=== PATIENT | female | born 1940 | race Caucasian/White ===

== ENCOUNTER 2018-10-04 17:17 | Inpatient (IN) ==
[2018-10-04] MEDS ORDERED: ONDANSETRON INJ 2 MG/ML 2 ML VIAL IV STA (17:26)
[2018-10-04] MEDS ORDERED: SODIUM CHLORIDE 0.9% 1000ML 1,000 ML IV SCH (17:30)
--- NOTE | 2018-10-04 17:35 | Emergency Department Note ---
Entered by Ivelisse Rider acting as a scribe for History of Present Illness General Chief complaint: Illness Time Seen by Provider: 10/04/18 17:18 Source: patient and EMS Mode of arrival: EMS Limitations: no limitations History of Present Illness Provider complaint: nausea, vomiting and diarrhea Onset (ago): hour(s) (this morning) Location: abdomen Pain Consistency: + other (persistent ) Quality: + other (NVD) Associated symptoms: + denies other symptoms (dysuria, abdominal pain, sore throat) and + fever/chills (chills, no fever); no cough Treatments prior to arrival: other (Zofran, Saline) The patient is a 77 year old female who presents to the Emergency Room with complaints of persistent nausea, vomiting and diarrhea that began this morning. The patient notes that she began to feel nauseous this morning and later in the afternoon had several episodes of vomiting as well as diarrhea. She denies any fevers but notes she has had chills. The patient reports that her has been experiencing similar symptoms but did not have to present to the ER. She denies any dysuria, sore throat, abdominal pain. She has had a dry cough. She states that she has a history of hypertension and osteoporosis. Per EMS, the patient was given 4 mg of Zofran en route as well as 500 cc of saline. Home Medications Home Medications Medication Instructions Recorded Confirmed Type alendronate 70 mg PO WK 10/04/18 10/04/18 History atorvastatin 20 mg PO DAILY 10/04/18 10/04/18 History calcium carbonate [Tums] 200 mg PO DIRECTED PRN 10/04/18 10/04/18 History calcium carbonate-vitamin D3 1 tab PO DAILY 10/04/18 10/04/18 History [Caltrate 600 + D] hydrochlorothiazide 25 mg PO DAILY 10/04/18 10/04/18 History lisinopril 5 mg PO DAILY 10/04/18 10/04/18 History Allergies Allergy/AdvReac Type Severity Reaction Status Date / Time Penicillins Allergy Mild Unknown Verified 10/04/18 17:39 codeine AdvReac Mild NAUSEA Verified 10/04/18 17:39 meperidine AdvReac Mild NAUSEA Verified 10/04/18 17:39 Past Med/Surg History Medical History Osteoporosis (Chronic) Hypertension (Chronic) Breast cancer CKD (chronic kidney disease) stage 3, GFR 30-59 ml/min IBS (irritable bowel syndrome) Osteoarthritis Raynauds disease UTI (urinary tract infection) Surgical History H/O partial mastectomy left Hx of cholecystectomy Social History Preferred Language: Cuban Communication Ability: Effective Vocational Evaluator Required: No Beliefs That Will Affect Care: None marital status: Current Living Situation: Spouse Other Information That Helps Us Care for You: No Feels Safe at Home: Yes Safety Concerns: Feels Safe At This Time Smoking Status: Former smoker Hx Alcohol Use: No Hx Substance Use: No Review of Systems See HPI for pertinent positives & negatives. and A total of 10 systems reviewed and were otherwise negative Physical Exam Vital Signs Vital Signs - 24 hr 10/04/18 17:23 10/04/18 17:40 10/04/18 20:00 Temperature 36.4 C L Temperature Source Oral Sepsis Recent Fever Within 48 Hours No Sepsis New/Unexplained Change in Mental Status No Sepsis Action Taken by Nursing No Action Required Pulse Rate 72 Pulse Rate [Left Radial] 108 H Pulse Rhythm Regular Pulse Strength Normal Respiratory Rate 20 18 Respiratory Effort / Characteristics Non-Labored Spontaneous Respiratory Depth Normal Respiratory Pattern Regular Blood Pressure 169/84 H Blood Pressure [Left Arm] 181/87 H Blood Pressure [Right Arm] Blood Pressure Mean 112 Blood Pressure Mean [Left Arm] 118 Blood Pressure Mean [Right Arm] Blood Pressure Position Sitting Pulse Oximetry 99 96 91 Oxygen Delivery Method Room Air Room Air 10/04/18 21:10 10/04/18 21:33 Temperature 36.7 C Temperature Source Oral Sepsis Recent Fever Within 48 Hours Sepsis New/Unexplained Change in Mental Status Sepsis Action Taken by Nursing Pulse Rate 115 H Pulse Rate [Left Radial] 78 Pulse Rhythm Pulse Strength Respiratory Rate 16 20 Respiratory Effort / Characteristics Respiratory Depth Respiratory Pattern Blood Pressure 165/93 H Blood Pressure [Left Arm] 166/87 H Blood Pressure [Right Arm] 157/100 H Blood Pressure Mean Blood Pressure Mean [Left Arm] 113 Blood Pressure Mean [Right Arm] 119 Blood Pressure Position Pulse Oximetry 92 98 Oxygen Delivery Method Room Air Room Air GENERAL: Patient is in no acute distress. HEENT: No acute trauma, normocephalic atraumatic, mucous membranes dry, no nasal congestion, no scleral icterus. NECK: No stridor, no adenopathy, no meningismus, trachea is midline. LUNGS: Clear to auscultation bilaterally, no wheeze, no rhonchi, breath sounds equal. HEART: Without murmurs gallops or rubs, regular rate and rhythm. ABDOMEN: Soft, nontender, bowel sounds positive, no hernias, no peritonitis. EXTREMITIES: No cyanosis or edema, full range of motion of all the joints without pain or difficulty, no signs for acute trauma. NEUROLOGIC: Oriented x 3, no acute motor or sensory deficits, no focal weakness. SKIN: No rash, no jaundice, no diaphoresis. Course 172: Past medical records reviewed. The patient was evaluated in room C10, and a complete history and physical examination were performed. 1900: The patient is requesting more nausea medication. 1916: Upon reevaluation, the patient is still feeling poorly. She now reports that she has had a dry cough. 1922: I reviewed the patient's case with Dr. Nikole Zhu. He will evaluate the patient for further management. Administered Medications Azithromycin 500 mg/ Dextrose 255 mls @ 125 mls/hr IV DAILY@2200 [facility] Stop: 10/11/18 21:59 Last Admin: 10/04/18 22:07 Dose: 125 mls/hr Documented by: [id number] Cefepime HCl 2,000 mg/ Syringe 20 mls @ 5.5 mls/min IV Q24H [facility]; Protocol Stop: 10/11/18 21:59 Last Admin: 10/04/18 21:57 Dose: 5.5 mls/min Documented by: [id number] Dextrose/Sodium Chloride (D5w And Nss) 1,000 mls @ 125 mls/hr IV .Q8H [facility] Stop: 11/03/18 21:09 Last Admin: 10/04/18 21:57 Dose: 125 mls/hr Documented by: [id number] Discontinued Medications Sodium Chloride (Nss 1000ml) 1,000 mls @ 999 mls/hr IV .Q1H1M [facility] Stop: 10/04/18 18:30 Last Infusion: 10/04/18 18:34 Dose: 0 mls/hr Documented by: [id number] Admin: 10/04/18 17:33 Dose: 999 mls/hr Documented by: [id number] Magnesium Sulfate/Dextrose (Magnesium Sulfate / D5w) 1 gm in 100 mls @ 100 mls/hr IV ONE ONE Stop: 10/04/18 19:25 Last Infusion: 10/04/18 20:10 Dose: 0 mls/hr Documented by: [id number] Admin: 10/04/18 19:00 Dose: 100 mls/hr Documented by: [id number] Promethazine HCl 6.25 mg/ (Sodium Chloride) 50.25 mls @ 201 mls/hr IV NOW STA Stop: 10/04/18 19:14 Last Admin: 10/04/18 19:20 Dose: Not Given Documented by: [id number] Cefepime HCl 2,000 mg/ Syringe 20 mls @ 5.5 mls/min IV NOW STA Stop: 10/04/18 19:20 Last Admin: 10/04/18 21:55 Dose: Not Given Documented by: [id number] Sodium Chloride (Nss 1000ml) 500 mls @ 999 mls/hr IV .Q31M ONE Stop: 10/04/18 19:47 Last Infusion: 10/04/18 20:11 Dose: 0 mls/hr Documented by: [id number] Admin: 10/04/18 19:20 Dose: 999 mls/hr Documented by: [id number] Magnesium Oxide (Mag-Ox) 400 mg PO NOW STA Stop: 10/04/18 18:27 Last Admin: 10/04/18 19:19 Dose: 400 mg Documented by: [id number] Ondansetron HCl (Zofran) 2 mg IV NOW STA Stop: 10/04/18 17:27 Last Admin: 10/04/18 17:38 Dose: 2 mg Documented by: [id number] Promethazine HCl (Phenergan) Confirm Administered Dose 6.25 mg IV .STK-MED ONE Stop: 10/04/18 19:18 Last Admin: 10/04/18 19:19 Dose: 6.25 mg Documented by: [id number] Medical Decision Making Differential Diagnosis Differential Diagnosis includes: viral illness, foodborne illness, dehydration, renal injury, UTI, influenza, bowel obstruction, and liver failure. Medical Records Attestation: I reviewed the patient's medical records. Home Medications Current Medication List: was personally reviewed by me Laboratory Data Attestation: I reviewed the patient's lab results. Result diagrams: 10/04/18 17:49 10/04/18 17:49 Lab Results 10/04/18 10/04/18 10/04/18 Range/Units 17:42 17:49 17:49 WBC 9.38 (4.8-10.8) K/uL RBC 4.78 (4.2-5.4) M/uL Hgb 14.9 (12.0-16.0) g/dL Hct 44.3 (37-47) % MCV 92.7 (80-100) fL MCH 31.2 (25-34) pg MCHC 33.6 (32-36) g/dL RDW Std Deviation 47.1 H (36.4-46.3) fL RDW Coeff of Dana 13.8 (11.5-14.5) % Plt Count 211 (130-400) K/uL MPV 10.2 (7.4-10.4) fL Immature Gran % (Auto) 0.2 % Neut % (Auto) 88.1 % Lymph % (Auto) 6.5 % Wheeler % (Auto) 5.0 % Eos % (Auto) 0.2 % Baso % (Auto) 0.0 % Immature Gran # (Auto) 0.02 (0.00-0.02) K/uL Neut # (Auto) 8.26 H (1.4-6.5) K/uL Lymph # (Auto) 0.61 L (1.2-3.4) K/uL Wheeler # (Auto) 0.47 (0.11-0.59) K/uL Eos # (Auto) 0.02 (0-0.5) K/uL Baso # (Auto) 0.00 (0-0.2) K/uL PT (9.0-12.0) Seconds INR (0.9-1.1) APTT (21.0-31.0) Seconds PTT Ratio Sodium 140 (136-145) mmol/L Potassium 4.1 (3.5-5.1) mmol/L Chloride 105 (98-107) mmol/L Carbon Dioxide 27 (21-32) mmol/L Anion Gap 8.0 (3-11) BUN 18 (7-18) mg/dl Creatinine 0.98 (0.6-1.2) mg/dl Est Cr Clr Drug Dosing 41.5 ml/min Est GFR ( Amer) 63.6 Est GFR (Non-Af Amer) 54.9 BUN/Creatinine Ratio 18.6 (10-20) Glucose 139 H (70-99) mg/dl Calcium 8.9 (8.5-10.1) mg/dl Magnesium 1.6 L (1.8-2.4) mg/dl Total Bilirubin 0.7 (0.2-1) mg/dl AST 30 (15-37) U/L ALT 29 (12-78) U/L Alkaline Phosphatase 69 (45-117) U/L Troponin I < 0.015 (0-0.045) ng/ml Total Protein 7.1 (6.4-8.2) gm/dl Albumin 3.3 L (3.4-5.0) gm/dl Globulin 3.8 (2.5-4.0) gm/dl Albumin/Globulin Ratio 0.9 (0.9-2) TSH 2.050 (0.300-4.500) uIu/ml Influenza Type A Ag Neg for Influ A (Neg) Influenza Type B Ag Neg for Influ B (Neg) 10/04/18 Range/Units 17:49 WBC (4.8-10.8) K/uL RBC (4.2-5.4) M/uL Hgb (12.0-16.0) g/dL Hct (37-47) % MCV (80-100) fL MCH (25-34) pg MCHC (32-36) g/dL RDW Std Deviation (36.4-46.3) fL RDW Coeff of Dana (11.5-14.5) % Plt Count (130-400) K/uL MPV (7.4-10.4) fL Immature Gran % (Auto) % Neut % (Auto) % Lymph % (Auto) % Wheeler % (Auto) % Eos % (Auto) % Baso % (Auto) % Immature Gran # (Auto) (0.00-0.02) K/uL Neut # (Auto) (1.4-6.5) K/uL Lymph # (Auto) (1.2-3.4) K/uL Wheeler # (Auto) (0.11-0.59) K/uL Eos # (Auto) (0-0.5) K/uL Baso # (Auto) (0-0.2) K/uL PT 10.7 (9.0-12.0) Seconds INR 1.0 (0.9-1.1) APTT 20.6 L (21.0-31.0) Seconds PTT Ratio 0.8 Sodium (136-145) mmol/L Potassium (3.5-5.1) mmol/L Chloride (98-107) mmol/L Carbon Dioxide (21-32) mmol/L Anion Gap (3-11) BUN (7-18) mg/dl Creatinine (0.6-1.2) mg/dl Est Cr Clr Drug Dosing ml/min Est GFR ( Amer) Est GFR (Non-Af Amer) BUN/Creatinine Ratio (10-20) Glucose (70-99) mg/dl Calcium (8.5-10.1) mg/dl Magnesium (1.8-2.4) mg/dl Total Bilirubin (0.2-1) mg/dl AST (15-37) U/L ALT (12-78) U/L Alkaline Phosphatase (45-117) U/L Troponin I (0-0.045) ng/ml Total Protein (6.4-8.2) gm/dl Albumin (3.4-5.0) gm/dl Globulin (2.5-4.0) gm/dl Albumin/Globulin Ratio (0.9-2) TSH (0.300-4.500) uIu/ml Influenza Type A Ag (Neg) Influenza Type B Ag (Neg) Imaging Data Radiologist's Impression: Radiology results as stated below per my review and the radiologist's interpretation: CHEST AND ABDOMEN 2 VIEWS HISTORY: Nausea. Vomiting. Diarrhea. COMPARISON: None. FINDINGS: The bowel gas pattern is unremarkable. No evidence for bowel obstruction. No renal or ureteral calculi. No pneumoperitoneum. No pneumatosis. No pneumothorax. No significant pleural effusions. The heart is mildly enlarged. Diffuse interstitial thickening throughout the lungs. Some of this has a reticular nodular appearance. Right medial lung base hazy airspace opacity. Linear density within the left midlung zone suggestive of scarring or atelectasis. IMPRESSION: 1. No evidence for bowel obstruction. 2. Cardiomegaly with reticulonodular interstitial thickening. This could be chronic. An atypical pneumonitis could also have a similar appearance. 3. Hazy appearance to the right medial lung base may be due to atelectasis or pneumonia. Electronically signed by: Kristian Hughes M.D. 10/04/2018 6:54 PM ECG Data Attestation: I personally reviewed and interpreted this ECG as follows: Indication: weakness Rate (beats per minute): 75 Rhythm: normal sinus Findings: + other (LVH) and + RBBB; no PVC and no ST elevation Comparison ECG Date: no prior available Blood Pressure Blood Pressure Findings: Elevated blood pressure Blood Pressure Disposition: further management by hospitalist SORAYA Narrative There is no leukocytosis or concerning anemia. No kidney failure. Magnesium is low at 1.6. No hepatitis. The patient appears to be in a euthyroid state. EKG shows a sinus rhythm, no acute ischemia. Cardiac enzyme testing x1 is not con sistent with acute cardiac injury. Influenza testing was negative. Abdominal series does not show any bowel obstruction or free air. A potential pneumonia was seen in the right lower lung. Blood cultures are pending. The patient had received Zofran and saline in route. She required additional IV Zofran, she was given additional IV saline. She required IV Phenergan for continued nausea. She was given IV cefepime as antibiotic coverage. She received IV magnesium and oral magnesium. The patient presents with vomiting, she is dehydrated. She has been coughing with chills. She appears to have pneumonia. She is not responding to antinausea meds, she still feels quite sick in her stomach despite what she has already received. I do not think she is any condition to be discharged home. I spoke to the patient and correctional casework specialist. The on-call hospitalist was consulted. Impression & Plan Vomiting, Dehydration, Pneumonia, Weakness, Hypomagnesemia Discharge Plan Visit Data *Final* Discharge Date/Time: 10/04/18 21:10 Chief Complaint: Illness ED Provider: Naveen Ramos Discharge Problem: Vomiting, Dehydration, Pneumonia, Weakness, Hypomagnesemia Patient Disposition: Admitted As Inpatient Discharge Instructions Interventions: ED Discharge Assessment Last Done: 10/04/18 21:10 Discharge Problem: Vomiting Qualifiers: Vomiting type: unspecified Vomiting Intractability: intractable Nausea presence: with nausea Qualified Code(s): R11.2 - Nausea with vomiting, un specified Pneumonia Qualifiers: Pneumonia type: due to unspecified organism Laterality: right Lung location: lower lobe of lung Qualified Code(s): J18.1 - Lobar pneumonia, unspecified organism The scribe's documentation has been prepared under my direction and personally reviewed by me in its entirety. I confirm that the note above accurately refle cts all work, treatment, procedures, and medical decision making performed by me.
[2018-10-04 18:03] LABS: Eosinophils # (auto) 0.02 K/uL (0-0.5); Eosinophils % (auto) 0.2 %; Hematocrit (blood only) 44.3 % (37-47); Hemoglobin 14.9 g/dL (12.0-16.0); Immature Granulocytes # (auto) 0.02 K/uL (0.00-0.02); Immature Granulocytes % (auto) 0.2 %; Lymphocytes # (auto) 0.61 K/uL (1.2-3.4); Lymphocytes % (auto) 6.5 %; Mean Corpuscular Hgb Conc 33.6 g/dL (32-36); Mean Corpuscular Volume 92.7 fL (80-100); Mean Platelet Volume 10.2 fL (7.4-10.4); Monocytes # (auto) 0.47 K/uL (0.11-0.59); Neutrophils # (auto) 8.26 K/uL (1.4-6.5); Neutrophils % (auto) 88.1 %; Platelet Count 211 K/uL (130-400); RDW Coefficient of Variation 13.8 % (11.5-14.5); RDW Standard Deviation 47.1 fL (36.4-46.3); Red Blood Count 4.78 M/uL (4.2-5.4); White Blood Count 9.38 K/uL (4.8-10.8)
[2018-10-04 18:20] LABS: Alanine Aminotransferase 29 U/L (12-78); Albumin Level 3.3 gm/dl (3.4-5.0); Aspartate Aminotransferase 30 U/L (15-37); BUN Creatinine Ratio 18.6 (10-20); Blood Urea Nitrogen 18 mg/dl (7-18); Calcium 8.9 mg/dl (8.5-10.1); Carbon Dioxide 27 mmol/L (21-32); Chloride 105 mmol/L (98-107); Creatinine Clr Calc Pharmacy 41.5 ml/min; Est GFR (African American) 63.6; Est GFR (Non-African American) 54.9; Glucose 139 mg/dl (70-99); Magnesium 1.6 mg/dl (1.8-2.4); Potassium 4.1 mmol/L (3.5-5.1); Sodium 140 mmol/L (136-145)
[2018-10-04] MEDS ORDERED: MAGNESIUM SULFATE / D5W 1 GM/100 ML BAG IV ONE (18:26)
[2018-10-04] MEDS ORDERED: MAGNESIUM OXIDE 400 MG TAB PO STA (18:26)
[2018-10-04 18:31] LABS: Albumin Globulin Ratio 0.9 (0.9-2); Alkaline Phosphatase 69 U/L (45-117); Bilirubin,Total 0.7 mg/dl (0.2-1); Globulin 3.8 gm/dl (2.5-4.0); Total Protein 7.1 gm/dl (6.4-8.2); Troponin I < 0.015 ng/ml (0-0.045)
--- NOTE | 2018-10-04 18:56 | XRay Report ---
CHEST AND ABDOMEN 2 VIEWS HISTORY: Nausea. Vomiting. Diarrhea. COMPARISON: None. FINDINGS: The bowel gas pattern is unremarkable. No evidence for bowel obstruction. No renal or urete ral calculi. No pneumoperitoneum. No pneumatosis. No pneumothorax. No significant pleural effusions. The heart is mildly enlarged. Diffuse interstitial thickening throughout the lungs. Some of this has a reticular nodular appearance. Right medial lung base hazy airspace opacity. Linear density within t he left midlung zone suggestive of scarring or atelectasis. IMPRESSION: 1. No evidence for bowel obstruction. 2. Cardiomegaly with reticulonodular interstitial thickening. This could be chronic. An atypical pneu monitis could also have a similar appearance. 3. Hazy appearance to the right medial lung base may be due to atelectasis or pneumonia. Electronically signed by: Kristian Hughes M.D. 10/04/2018 6:54 PM
[2018-10-04] MEDS ORDERED: PROMETHAZINE HCL 6.25 MG in SODIUM CHLORIDE 0.9% 50 ML IV STA (19:00)
[2018-10-04] MEDS ORDERED: PROMETHAZINE 6.25 MG/50.25 ML NSS IV ONE (19:17)
[2018-10-04] MEDS ORDERED: CEFEPIME 2,000 MG in SYRINGE 7.5 ML IV STA (19:17)
[2018-10-04] MEDS ORDERED: SODIUM CHLORIDE 0.9% 1000ML 500 ML IV ONE (19:17)
[2018-10-04] MEDS ORDERED: NITROGLYCERIN SL 0.4 MG/TAB TAB SL PRN (21:10)
[2018-10-04] MEDS ORDERED: ONDANSETRON INJ 2 MG/ML 2 ML VIAL IV PRN (21:10)
[2018-10-04] MEDS ORDERED: CALCIUM CARBONATE 500 MG CHEWABLE TAB PO PRN ×2 (21:10→21:45)
[2018-10-04] MEDS ORDERED: ACETAMINOPHEN 325 MG TAB PO PRN (21:10)
[2018-10-04] MEDS ORDERED: CEFEPIME CONSULT ACTIVE PRN (21:22)
[2018-10-04 21:45] LABS: Partial Thromboplastin Ratio 0.8; Partial Thromboplastin Time 20.6 Seconds (21.0-31.0); Prothrombin Time 10.7 Seconds (9.0-12.0)
--- NOTE | 2018-10-04 21:47 | History and Physical Report ---
DATE OF ADMISSION: 10/04/2018 CHIEF COMPLAINT: Nausea, vomiting, diarrhea, not feeling well. HISTORY OF PRESENT ILLNESS: This is a 77-year-old female with past medical history significant for hyperlipidemia, Raynaud's syndrome, hypertension, irritable bowel syndrome, chronic kidney stage III, generalized arthrosis and osteoporosis, history of malignant neoplasm of breast presents with nausea, vomiting and diarrhea. The patient says since today afternoon she developed nausea and vomited 3-4 times, vomited just watery stuff and also had 3-4 episodes of diarrhea. There was no blood in the stools.She was not feeling well, so she came to the ER. She also has a history of irritable bowel syndrome. Her also has similar symptoms since last 1 week, but not severe as hers. She received a couple of doses of antiemetics in the ER and still not feeling well, feeling weak and tired, so we were called for admission. Her nausea is better now, but she is still somewhat feeling weak. Has some headaches,. Has some issues with vision and is supposed to see eye doctor. No earache. Has some runny nose. No sore throat. Today, she also has some dry cough. No difficulty swallowing. Appetite is not great today. No chest pain, no shortness of breath. Denies any fever, but feeling very chilly requiring several blankets in the ER. No abdominal pain. She has normal bladder movements. No burning micturition. No swelling in the legs. No rash. Hemodynamics are stable. ALLERGIES: PENICILLINS, CODEINE, MEPERIDINE. PAST MEDICAL HISTORY: As mentioned above. PAST SURGICAL HISTORY: Cervical lesion, cervical polyp removal, colonoscopy with removal of hyperplastic polyps, left breast partial mastectomy, appendectomy, cataract surgery, cholecystectomy. MEDICATIONS: Patient is on atorvastatin 20 mg p.o. daily, alendronate 70 mg p.o. once a week, hydrochlorothiazide 25 mg p.o. daily, lisinopril 5 mg p.o. daily, multivitamins 1 tablet daily, calcium citrate plus vitamin D 1 tablet b.i.d. FAMILY HISTORY: Significant for grandmother with asthma and diabetes. Sister has rheumatoid arthritis. Father has asthma. SOCIAL HISTORY: Lives with her . Former smoker, smoked half pack a day for 30 years, quit in 1992. Alcohol, 1 glass of wine per week. No drug use. REVIEW OF SYSTEMS: As per HPI. Rest of review of symptoms negative. PHYSICAL EXAMINATION: GENERAL: The patient is of moderate build, not in acute distress. VITAL SIGNS: Temperature 36.4, pulse 72, respiratory rate 20, blood pressure 169/84, oxygen 96% room air. HEENT: No pallor, no icterus. Pupils equal, round, and reactive to light. NECK: No JVD, no neck masses, no carotid bruits. CARDIOVASCULAR: S1, S2 heard, regular rate and rhythm, no murmur, no gallop. RESPIRATORY SYSTEM: Normal AP diameter. No accessory muscle use. Mild bibasilar crackles. No wheezing. ABDOMEN: Soft, bowel sounds present. Nontender. No distention. CENTRAL NERVOUS SYSTEM: Cranial nerves II through XII grossly intact, nonfocal. EXTREMITIES: No edema, no erythema. LABORATORY DATA: WBC 9.3, hemoglobin 14.9, hematocrit 44.3, platelets 211. Sodium 140, potassium 4.1, chloride 105, bicarbonate 27, BUN 18, creatinine 0.9, serum glucose 139, calcium 8.9, magnesium 1.6, total bilirubin 0.7, AST 30, ALT 29, alkaline phosphatase 69. Troponin I less than 0.015. TSH 2.05. Influenza A and B antigen negative. IMAGING DATA: Chest and abdominal x-ray, no evidence for bowel obstruction, cardiomegaly with reticulonodular interstitial thickening and atypical pneumonitis could also have a similar appearance. Hazy appearance of the right medial lung base may be due to her atelectasis or pneumonia. EKG: Normal sinus rhythm with rate of 75, right bundle branch block, left ventricle hypertrophy, left anterior fascicular block. ASSESSMENT AND PLAN: This is a 77-year-old female who presents with nausea, vomiting and diarrhea. 1. Nausea, vomiting, diarrhea, not feeling well, possibly gastroenteritis, could be viral. We will check the stool sample. We will also follow urinalysis, urine culture, and blood culture. Possibly symptoms could be from pneumonia. Will place on liquid diet, antiemetics p.r.n., and IV fluids and monitor . 2. Pneumonia on the x-ray. Received cefepime in Er.Continue on cefepime and azithromycin. Follow the cultures. Follow the response. 3. Hyperlipidemia. Continue statin. 4. Hypertension. Will hold the hydrochlorothiazide, continue lisinopril. Monitor the blood pressure while off of hydrochlorothiazide. 5. Irritable bowel syndrome with diarrhea. Currently exacerbated from the gastroenteritis or pneumonia. Will follow the response with above treatment. 6. Chronic kidney disease, stage III. Creatinine 0.9, will follow the labs. 7. Senile osteoporosis and arthrosis. Needs followup. 8. EKG changes, we do not have old EKG to compare. May need to follow up with the PCP. Currently asymptomatic. 9. Deep venous thrombosis prophylaxis, Lovenox for now. 10. Disposition: Admit to med/surg tele. Level I full code. PT and OT prior to discharge. Social service to help with discharge planning. YI
[2018-10-04] MEDS: D5W AND NSS 1,000 ML IV SCH (21:57)
[2018-10-04] MEDS ORDERED: AZITHROMYCIN 500 MG in DEXTROSE 5% 250 ML IV SCH (22:00)
[2018-10-04] MEDS ORDERED: CEFEPIME 2,000 MG in SYRINGE 7.5 ML IV SCH (22:00)
[2018-10-04] MEDS ORDERED: ENOXAPARIN INJ 40 MG/0.4 ML SYR SQ SCH (22:15)
[2018-10-04 22:43] LABS: Appearance Urine Clear (Clear); Bilirubin Urine Negative (Negative); Blood Urine Negative (Negative); Color Urine Yellow; Glucose Urine UA Negative (Negative); Ketones Urine Negative (Negative); Leukocyte Esterase Urine Negative (Negative); Nitrite Urine Negative (Negative); Protein Urine Negative (Negative); Specific Gravity Urine 1.018 (1.000-1.030); Urobilinogen Urine Negative (Negative)
[2018-10-05] MEDS ORDERED: BENZONATATE 100 MG CAPSULE PO PRN (01:02)
[2018-10-05] MEDS ORDERED: SODIUM CHLORIDE 0.9% 500 ML IV SCH (01:15)
[2018-10-05 05:22] LABS: Hematocrit (blood only) 38.3 % (37-47); Immature Granulocytes # (auto) 0.02 K/uL (0.00-0.02); Immature Granulocytes % (auto) 0.2 %; Lymphocytes # (auto) 0.69 K/uL (1.2-3.4); Lymphocytes % (auto) 5.8 %; Mean Corpuscular Hgb Conc 33.9 g/dL (32-36); Mean Corpuscular Volume 91.4 fL (80-100); Monocytes # (auto) 0.61 K/uL (0.11-0.59); Monocytes % (auto) 5.1 %; Neutrophils # (auto) 10.63 K/uL (1.4-6.5); Neutrophils % (auto) 88.9 %; Platelet Count 192 K/uL (130-400); RDW Coefficient of Variation 14.1 % (11.5-14.5); RDW Standard Deviation 47.3 fL (36.4-46.3); Red Blood Count 4.19 M/uL (4.2-5.4); White Blood Count 11.95 K/uL (4.8-10.8)
[2018-10-05] MEDS: D5W AND NSS 1,000 ML IV SCH ×2 (05:48→13:40)
[2018-10-05 05:58] LABS: BUN Creatinine Ratio 15.3 (10-20); Calcium 7.3 mg/dl (8.5-10.1); Creatinine Clr Calc Pharmacy 34.5 ml/min; Est GFR (African American) 51.3; Est GFR (Non-African American) 44.3; Magnesium 1.8 mg/dl (1.8-2.4); Potassium 3.1 mmol/L (3.5-5.1)
[2018-10-05] MEDS ORDERED: POTASSIUM ACETATE 20 MEQ in 0.9 % SODIUM CHLORIDE 100 ML IV STA (07:22)
[2018-10-05] MEDS: POTASSIUM CHLORIDE / WTR 10 MEQ/100 ML PLCT IV SCH ×4 (08:26→11:50)
[2018-10-05] MEDS ORDERED: ATORVASTATIN 20 MG TAB PO SCH (09:00)
[2018-10-05] MEDS ORDERED: LISINOPRIL 5 MG TAB PO SCH (09:00)
[2018-10-05] MEDS ORDERED: CALCIUM 600MG + VIT D 400 IU TAB PO SCH (09:00)
--- NOTE | 2018-10-05 11:06 | Discharge Summary ---
Date of Service October 05, 2018 Admission HPI Per Admitting Provider 77-year-old female with past medical history significant for hyperlipidemia, Raynaud's syndrome, hypertension, irritable bowel syndrome, chronic kidney stage III, generalized arthrosis and osteoporosis, history of malignant neoplasm of breast presents with nausea, vomiting and diarrhea. The patient says since today afternoon she developed nausea and vomited 3-4 times, vomited just watery stuff and also had 3-4 episodes of diarrhea. There was no blood in the stools.She was not feeling well, so she came to the ER. She also has a history of irritable bowel syndrome. Her also has similar symptoms since last 1 week, but not severe as hers. She received a couple of doses of antiemetics in the ER and still not feeling well, feeling weak and tired, so we were called for admission. Her nausea is better now, but she is still somewhat feeling weak. Has some headaches,. Has some issues with vision and is supposed to see eye doctor. No earache. Has some runny nose. No sore throat. Today, she also has some dry cough. No difficulty swallowing. Appetite is not great today. No chest pain, no shortness of breath. Denies any fever, but feeling very chilly requiring several blankets in the ER. No abdominal pain. She has normal bladder movements. No burning micturition. No swelling in the legs. No rash. Hemodynamics are stable. Admission Exam Per Admitting Provider PHYSICAL EXAMINATION: GENERAL: The patient is of moderate build, not in acute distress. VITAL SIGNS: Temperature 36.4, pulse 72, respiratory rate 20, blood pressure 169/84, oxygen 96% room air. HEENT: No pallor, no icterus. Pupils equal, round, and reactive to light. NECK: No JVD, no neck masses, no carotid bruits. CARDIOVASCULAR: S1, S2 heard, regular rate and rhythm, no murmur, no gallop. RESPIRATORY SYSTEM: Normal AP diameter. No accessory muscle use. Mild bibasilar crackles. No wheezing. ABDOMEN: Soft, bowel sounds present. Nontender. No distention. CENTRAL NERVOUS SYSTEM: Cranial nerves II through XII grossly intact, nonfocal. EXTREMITIES: No edema, no erythema. Principal Diagnosis Pneumonia Gastroenteritis Nausea with vomiting Diarrhea Dehydration Discharge Exam ROS-No Headache, No Visual Changes, No Nausea, No Vomiting, No Fever, No Chills, No Neck Pain or Stiffness, No Chest Pain, No Palpitations, No SOB, No LEDESMA, + Cough, No Sputum, No Wheezing, No Abdominal Pain, No Diarrhea, No Hematemesis, No Hemoptysis, No Unexpected Weight Loss, No Flank pain, No Melena, No Hematochezia, No Frequency, No Urgency, No Burning, No Hematuria, No Rashes, No Diaphoresis. Appetite is Normal Physical Exam Gen-AAO x 3, NAD, Afebrile Head-NCAT, EOMI, PERRLA, Anicteric Sclera, No Posterior Pharyngeal Erythema Neck-Supple, No JVD, No Thyromegaly, No Masses, No LAD, No Bruits Lungs-Clear to Auscultation Bilaterally, No Rales, No Rhonchi, No Wheezing, No Crepitus Chest-No S4, +S1, +S2, No S3, No Murmurs, No Rubs, No Gallops, No Ectopy Abdomen-Soft, Bowel Sounds Present, Non Tender, Non Distended, No Hepatomegaly, No Splenomegaly, No Palpable Masses, No Rebound, No Rigidity, No Guarding Musculoskeletal-Full Range of Motion Bilaterally, No CVAT Extremities-No Cyanosis, No Clubbing, No Edema Nuero-Cranial Nerves II-XII grossly intact, Motor WNL, DTRs WNL, Strength WNL, Non Focal Psych-Normal Mood Discharge Data Allergies Allergy/AdvReac Type Severity Reaction Status Date / Time Penicillins Allergy Mild Unknown Verified 10/04/18 17:39 codeine AdvReac Mild NAUSEA Verified 10/04/18 17:39 meperidine AdvReac Mild NAUSEA Verified 10/04/18 17:39 Consultations 10/04/18 19:21 ED Decision to Admit Stat Allergies Penicillins Allergy (Mild, Verified 10/04/18 17:39) Unknown codeine Adverse Reaction (Mild, Verified 10/04/18 17:39) NAUSEA meperidine Adverse Reaction (Mild, Verified 10/04/18 17:39) NAUSEA Height/Weight/Isolation Height 5 ft 2 in Weight 65 kg Chemistry 10/04/18 10/05/18 17:49 05:11 Sodium 140 139 Potassium 4.1 3.1 L D Chloride 105 108 H Carbon Dioxide 27 27 Anion Gap 8.0 4.0 BUN 18 18 Creatinine 0.98 1.17 Glucose 139 H 125 H Urinalysis 10/04/18 22:20 Urine Color Yellow Urine Appearance Clear Urine pH 6.0 Ur Specific [place] 1.018 Urine Protein Negative Urine Glucose (UA) Negative Urine Ketones Negative Urine Blood Negative Urine Nitrite Negative Urine Bilirubin Negative Microbiology 10/04/18 20:36 Blood Blood Culture - Pending 10/04/18 20:30 Blood Blood Culture - Pending Hospital Course (1) Pneumonia: DC home today on Zithromax 6 days and Cefuroxime for 14 days (2) Dehydration: Resolved (3) Vomiting: Resolved HTN-Hold HCTZ Hypokalemia-Repleted IV this am DC today, said she wants to go home and will take it easy, f/u c Tasneem Garza 10/12 at 1025 Total Time Total Time Spent Total Time Spent (In Minutes): 45 mins Total Time Includes: Examination of the Patient, Discharge Planning, Medication Reconciliation and Communication With Other Providers Discharge Plan Discharge Items Patient Disposition: Home - Self-Care Reason For Visit: ILLNESS,N/V/D Discharge Diagnosis: Pneumonia Gastroenteritis Nausea with vomiting Diarrhea Dehydration Condition: Good Discharge Goals: Improve function Activity: Resume your previous activity Lifting: Gradually increase as tolerated Bathing: No limitations Sexual Activity: When tolerated Exercise/Sports: Gradually increase as tolerated Driving/Machine Use: No limitations Weightbearing: Left weightbearing and Right weightbearing Non-emergency contact: Primary Care Provider Call non-emergency contact if: you have any medication questions and your sym ptoms worsen Follow-up/Referrals: Tasneem Potter DO [Primary Care Provider] - 10/12/18 10:00 am (October 12 at 1025) Diet: Heart Healthy Addtl Provider Instructions: Routine follow-up, make sure her pneumonia resolves to full resolution with a chest x-ray in 6-8 weeks. Prescriptions: New acetaminophen [Mapap (acetaminophen)] 325 mg Tablet 650 mg PO Q4H PRN (Reason: fever or pain) Qty: 100 RF: 0 benzonatate [Tessalon Perles] 100 mg Capsule 100 mg PO TID PRN (Reason: cough) Qty: 30 RF: 0 cefuroxime axetil 500 mg tablet 500 mg PO BID 14 Days Qty: 28 RF: 0 azithromycin 250 mg tablet 250 mg PO DAILY 6 Days Qty: 6 RF: 0 Continued atorvastatin 20 mg tablet 20 mg PO DAILY RF: 0 calcium carbonate [Tums] 200 mg calcium (500 mg) Tablet,Chewable 200 mg PO DIRECTED PRN (Reason: Indigestion) RF: 0 lisinopril 5 mg tablet 5 mg PO DAILY RF: 0 Caltrate 600 + D 600 mg (1,500 mg)-800 unit Tablet,Chewable 1 tab PO DAILY RF: 0 alendronate 70 mg tablet 70 mg PO WK RF: 0 Discontinued hydrochlorothiazide 25 mg tablet 25 mg PO DAILY RF: 0 Stand-Alone Forms: [facility] Orders: Discharge Order (Routine); Ordered 10/05/18 Ordered By: Gamaliel Acuna Admission Data Admit Date/Time: 10/04/18 19:53 Attending Provider: Gamaliel Acuna Admit Provider: Vasquez Agustin Primary Care Provider: Tasneem Potter Other Providers: Vasquez Agustin Service: Telemetry
== END 2018-10-05 16:36 | disposition home or self-care (01) ==
LOC: ED 17:17 → 2N 19:53

== ENCOUNTER 2025-01-26 12:31 | Inpatient (IN) ==
[2025-01-26 12:57] LABS: Hematocrit (blood only) 38.3 % (37.0-47.0); Hemoglobin 13.3 g/dl (12.0-16.0); Immature Granulocytes # (auto) 0.04 K/uL (0.01-0.20); Immature Granulocytes % (auto) 0.5 %; Mean Corpuscular Hemoglobin 29.7 pg (25.0-34.0); Mean Corpuscular Volume 85.5 fL (80.0-100.0); Platelet Count 364 K/uL (130-400); RDW Standard Deviation 43.0 fL (36.4-46.3); Red Blood Count 4.48 M/uL (4.20-5.40); White Blood Count 8.25 K/ul (4.8-10.8)
--- NOTE | 2025-01-26 13:00 | Emergency Department Note ---
Impression & Plan Closed left femoral fracture ED Provider Note NAME: MELIDA CARTAGENA AGE: 84 SEX: F : 1940 ARRIVES VIA: Ambulance INFORMANT: Patient, ED PROVIDER(S): Monica Jha MD CHIEF COMPLAINT: Fall, left hip pain HPI: This is an 81-year-old female presenting for a fall. Patient states that she was in her garage and had tripped. She noted excruciating left hip pain. EMS arrived and had to give her total of 100 mcg of fentanyl en route. Denies any blood thinners or hitting her head. She had severe shooting hip pain currently. No other pain to her body ROS: See above HPI for pertinent positives & negatives. A total of 10 systems reviewed and were otherwise negative. PAST MEDICAL HISTORY: See Below PAST SURGICAL HISTORY: See Below FAMILY HISTORY: See Below SOCIAL HISTORY: See Below HOME MEDICATIONS: See Below ALLERGIES: See Below VITALS: See Below PHYSICAL EXAMINATION: General: resting comfortably in no acute distress Head: Normocephalic and atraumatic Eyes: Normal inspection, extraocular muscles intact Ear, nose, throat: Normal external exam Neck: Normal range of motion Respiratory: lungs clear to auscultation bilaterally Cardiovascular: Regular rate/rhythm, no murmur GI: soft, nontender, no guarding or rebound Extremities: Internally rotated left hip Neuro: The patient awake and alert, appropriately conversive, no focal deficits, symmetric faces Skin: Warm, dry, and intact MEDICAL DECISION MAKING: This is an 81-year-old female presenting after a fall. Will do x-ray, basic blood work. High suspicion for hip versus femur fracture - Hip x-ray as independently by me reveals an acute likely spiral fracture of the left femur, it is angulated and displaced. - chest x-ray ordered for surgical planning. There is for cardiomegaly as well as a 4 x 1 cm masslike upper lobe opacity. -Patient will be admitted to the hospital service for further workup as well as hip fracture treatment. -Patient given multiple doses of Dilaudid for her pain control -Bloodwork is reviewed showing no significant leukocytosis, anemia, electrolyte or creatinine abnormality. Only slight hyponatremia is noted Differential diagnosis: Hip versus femur versus pelvic fracture Independent History obtained from: [facility] interpreted by me: ECG: ECG independently interpreted by me with sinus tachycardia, rate of 115, normal PA, right bundle branch block, normal QTc, no ST segment elevations consistent with STEMI criteria Cardiac Monitoring: An order was placed for continuous cardiac monitoring. The monitor shows a rate of 110 with sinus rhythm. 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 [place] Osteoporosis Hx of pulmonary edema (2020) required thoracentesis at [facility], [place] Raynauds disease Hx of irritable bowel syndrome HX: breast cancer left partial mastectomy Osteoarthritis Surgical History Hx of left cataract extraction (2004) Hx of colonoscopy Hx of cholecystectomy H/O partial mastectomy left- no chemo or xrt Family History Mother Diabetes Arthritis Father Gastrointestinal disorder colostomy Sister Rheumatoid arthritis Daughter Breast cancer Grandmother (Maternal) Diabetes Asthma Social History Smoking Status: Former smoker Tobacco Type: Cigarettes Age Started Using Tobacco: 14; Age Quit Using Tobacco: 28; packs per day: 0.5; Second Hand Exposure: No; Do You Dip or Chew Tobacco: No; Hx Alcohol Use: Yes Alcohol type: wine Hx Substance Use: No Preferred Language: Welsh Communication Ability: Effective Visual Impairment: No Limitations Hearing Ability: Normal Used Car Make Ready Worker Required: No Beliefs That Will Affect Care: None marital status: Current Living Situation: Spouse current occupational status: retired How many Children do You have: 4 Feels Safe at Home: Yes Diet: regular caffeine: No during the past year weight has: remained stable Dental Care, Regularly: No Physical Activity Frequency: Daily Seatbelt Use: always Sunscreen Use: Yes Assistive Devices: Cane, Denture - Upper, Denture - Lower and Glasses Allergies Allergies Allergy/AdvReac Type Severity Reaction Status Date / Time morphine Allergy Severe nausea and Verified 01/26/25 15:10 vomiting Penicillins Allergy Unknown Unknown Verified 01/26/25 15:10 codeine AdvReac Mild NAUSEA Verified 01/26/25 15:10 meperidine AdvReac Mild NAUSEA Verified 01/26/25 15:10 Home Meds Home Medications Medication Instructions Recorded Confirmed atorvastatin 20 mg tablet 20 mg PO QAM 10/04/18 01/26/25 amlodipine 5 mg tablet 5 mg PO QAM 04/10/24 01/26/25 acetaminophen 500 mg tablet 500 mg PO Q6H PRN Pain 01/26/25 01/26/25 losartan 25 mg tablet 25 mg PO QAM 01/26/25 01/26/25 Results & Data (ED) Vital Signs Vital Signs - 24 hr 01/26/25 12:38 01/26/25 12:38 01/26/25 12:44 Temperature 36.7 C 36.7 C Temperature Source Oral Pulse Rate 110 H 110 H Pulse Rate [Apical] 110 H Pulse Rate from SpO2 Sensor Pulse Rhythm [Apical] Pulse Strength [Bilateral Carotid] Normal Respiratory Rate 22 20 22 Respiratory Effort / Characteristics Non-Labored Spontaneous Non-Labored Spontaneous Respiratory Depth Normal Normal Respiratory Pattern Blood Pressure 162/125 H 162/125 H Blood Pressure [Right Arm] 162/125 H Blood Pressure Mean 137 Blood Pressure Mean [Right Arm] 137 Blood Pressure Position Sitting Blood Pressure Position [Right Arm] Lying Pulse Oximetry 93 93 93 Oxygen Delivery Method Room Air Room Air Room Air Oxygen Flow Rate 0 Sepsis Recent Fever Within 48 Hours No Sepsis New/Unexplained Change in Mental Status No Sepsis Action Taken by Nursing No Action Required 01/26/25 12:46 01/26/25 13:09 01/26/25 13:21 Temperature Temperature Source Pulse Rate 113 H 112 H 107 H Pulse Rate [Apical] Pulse Rate from SpO2 Sensor 114 H 107 H Pulse Rhythm [Apical] Pulse Strength [Bilateral Carotid] Respiratory Rate 25 H 26 H Respiratory Effort / Characteristics Respiratory Depth Respiratory Pattern Blood Pressure 180/90 H 132/98 Blood Pressure [Right Arm] Blood Pressure Mean 120 109 Blood Pressure Mean [Right Arm] Blood Pressure Position Blood Pressure Position [Right Arm] Pulse Oximetry 97 100 Oxygen Delivery Method Room Air Room Air Oxygen Flow Rate Sepsis Recent Fever Within 48 Hours Sepsis New/Unexplained Change in Mental Status Sepsis Action Taken by Nursing 01/26/25 13:44 01/26/25 13:58 01/26/25 14:00 Temperature Temperature Source Pulse Rate Pulse Rate [Apical] 113 H 113 H 116 H Pulse Rate from SpO2 Sensor Pulse Rhythm [Apical] Regular Pulse Strength [Bilateral Carotid] Respiratory Rate 24 20 18 Respiratory Effort / Characteristics Non-Labored Spontaneous Non-Labored Spontaneous Non-Labored Spontaneous Respiratory Depth Normal Normal Normal Respiratory Pattern Regular Regular Blood Pressure Blood Pressure [Right Arm] 132/98 132/98 167/117 H Blood Pressure Mean Blood Pressure Mean [Right Arm] 109 109 133 Blood Pressure Position Blood Pressure Position [Right Arm] Semi-fowlers Sitting Sitting Pulse Oximetry 100 100 97 Oxygen Delivery Method Room Air Room Air Room Air Oxygen Flow Rate Sepsis Recent Fever Within 48 Hours Sepsis New/Unexplained Change in Mental Status Sepsis Action Taken by Nursing 01/26/25 15:00 Temperature Temperature Source Pulse Rate Pulse Rate [Apical] 113 H Pulse Rate from SpO2 Sensor Pulse Rhythm [Apical] Pulse Strength [Bilateral Carotid] Respiratory Rate 28 H Respiratory Effort / Characteristics Non-Labored Spontaneous Respiratory Depth Normal Respiratory Pattern Blood Pressure Blood Pressure [Right Arm] 171/83 H Blood Pressure Mean Blood Pressure Mean [Right Arm] 112 Blood Pressure Position Blood Pressure Position [Right Arm] Pulse Oximetry 100 Oxygen Delivery Method Room Air Oxygen Flow Rate Sepsis Recent Fever Within 48 Hours Sepsis New/Unexplained Change in Mental Status Sepsis Action Taken by Nursing Laboratory Data 01/26/25 12:45 01/26/25 12:45 Lab Results 01/26/25 01/26/25 01/26/25 Range/Units 12:45 12:46 13:03 WBC 8.25 (4.8-10.8) K/ul RBC 4.48 (4.20-5.40) M/uL Hgb 13.3 (12.0-16.0) g/dl Hct 38.3 (37.0-47.0) % MCV 85.5 (80.0-100.0) fL MCH 29.7 (25.0-34.0) pg MCHC 34.7 (32.0-36.0) g/dL RDW Std Deviation 43.0 (36.4-46.3) fL RDW Coeff of Dana 13.8 (11.5-14.5) % Plt Count 364 (130-400) K/uL MPV 9.6 (9.4-12.4) fL Immature Gran % (Auto) 0.5 % Neut % (Auto) 73.0 % Lymph % (Auto) 19.9 % [place] % (Auto) 6.3 % Eos % (Auto) 0.1 % Baso % (Auto) 0.2 % Neut # (Auto) 6.02 (1.40-6.50) K/uL Lymph # (Auto) 1.64 (1.20-3.40) K/uL [place] # (Auto) 0.52 (0.11-0.59) K/uL Eos # (Auto) 0.01 (0.00-0.50) K/uL Baso # (Auto) 0.02 (0.00-0.20) K/uL Immature Gran # (Auto) 0.04 (0.01-0.20) K/uL Sodium 131 L (136-145) mmol/L Potassium 3.9 (3.5-5.1) mmol/L Chloride 95 L (98-107) mmol/L Carbon Dioxide 23 (21-32) mmol/L Anion Gap 13 H (3-11) BUN 16 (6-23) mg/dl Creatinine 1.08 (0.6-1.2) mg/dl Est Cr Clr Drug Dosing 32.3 ml/min eGFR 50.02 BUN/Creatinine Ratio 14.8 (10-20) Glucose 169 H (70-99(Fasting)) mg/dl Calcium 9.4 (8.6-10.3) mg/dl Magnesium 1.8 (1.7-2.4) mg/dl Total Bilirubin 0.7 (0.2-1.0) mg/dl AST 19 (13-39) U/L ALT 16 (7-52) U/L Alkaline Phosphatase 86 (34-104) U/L Total Protein 7.5 (6.0-8.3) gm/dl Albumin 3.8 (3.4-5.0) gm/dl Globulin 3.7 (2.5-4.0) gm/dl Albumin/Globulin Ratio 1.0 (0.9-2) 25-OH Vitamin D Total 42.1 (30-100) ng/ml TSH 4.007 (0.300-4.500) uIu/ml Urine Color Urine Appearance (Clear) Urine pH (4.5-7.5) Ur Specific [place] (1.000-1.030) Urine Protein (Negative) Urine Glucose (UA) (Negative) Urine Ketones (Negative) Urine Blood (Negative) Urine Nitrite (Negative) Urine Bilirubin (Negative) Urine Urobilinogen (Negative) Ur Leukocyte Esterase (Negative) Urine Comment Blood Type A Positive Antibody Screen NEGATIVE 01/26/25 Range/Units 14:38 WBC (4.8-10.8) K/ul RBC (4.20-5.40) M/uL Hgb (12.0-16.0) g/dl Hct (37.0-47.0) % MCV (80.0-100.0) fL MCH (25.0-34.0) pg MCHC (32.0-36.0) g/dL RDW Std Deviation (36.4-46.3) fL RDW Coeff of Dana (11.5-14.5) % Plt Count (130-400) K/uL MPV (9.4-12.4) fL Immature Gran % (Auto) % Neut % (Auto) % Lymph % (Auto) % [place] % (Auto) % Eos % (Auto) % Baso % (Auto) % Neut # (Auto) (1.40-6.50) K/uL Lymph # (Auto) (1.20-3.40) K/uL [place] # (Auto) (0.11-0.59) K/uL Eos # (Auto) (0.00-0.50) K/uL Baso # (Auto) (0.00-0.20) K/uL Immature Gran # (Auto) (0.01-0.20) K/uL Sodium (136-145) mmol/L Potassium (3.5-5.1) mmol/L Chloride (98-107) mmol/L Carbon Dioxide (21-32) mmol/L Anion Gap (3-11) BUN (6-23) mg/dl Creatinine (0.6-1.2) mg/dl Est Cr Clr Drug Dosing ml/min eGFR BUN/Creatinine Ratio (10-20) Glucose (70-99(Fasting)) mg/dl Calcium (8.6-10.3) mg/dl Magnesium (1.7-2.4) mg/dl Total Bilirubin (0.2-1.0) mg/dl AST (13-39) U/L ALT (7-52) U/L Alkaline Phosphatase (34-104) U/L Total Protein (6.0-8.3) gm/dl Albumin (3.4-5.0) gm/dl Globulin (2.5-4.0) gm/dl Albumin/Globulin Ratio (0.9-2) 25-OH Vitamin D Total (30-100) ng/ml TSH (0.300-4.500) uIu/ml Urine Color Yellow Urine Appearance Clear (Clear) Urine pH 8.5 H (4.5-7.5) Ur Specific [place] 1.010 (1.000-1.030) Urine Protein Negative (Negative) Urine Glucose (UA) Negative (Negative) Urine Ketones Trace H (Negative) Urine Blood Negative (Negative) Urine Nitrite Negative (Negative) Urine Bilirubin Negative (Negative) Urine Urobilinogen Negative (Negative) Ur Leukocyte Esterase Negative (Negative) Urine Comment Blood Type Antibody Screen Administered Medications Sodium Chloride (Nss) 1,000 mls @ 75 mls/hr IV .[id number] [facility] Stop: 01/29/25 14:14 Last Admin: 01/26/25 14:37 Dose: 75 mls/hr Documented By: LIO Discontinued Medications Diazepam (Diazepam 5 Mg/Ml 10ml Vial) 2.5 mg IV NOW STA Stop: 01/26/25 15:36 Last Admin: 01/26/25 15:50 Dose: 2.5 mg Documented By: MALIKA Hydromorphone HCl (Hydromorphone Inj 0.5 Mg/0.5 Ml Syr) 0.5 mg IV NOW STA Stop: 01/26/25 13:00 Last Admin: 01/26/25 13:04 Dose: 0.5 mg Documented By: LIO Hydromorphone HCl (Hydromorphone Inj 0.5 Mg/0.5 Ml Syr) 0.5 mg IV NOW STA Stop: 01/26/25 14:16 Last Admin: 01/26/25 14:21 Dose: 0.5 mg Documented By: LIO Acetaminophen (Ofirmev) 1,000 mg in 100 mls @ 400 mls/hr IV NOW STA Stop: 01/26/25 13:13 Last Infusion: 01/26/25 13:32 Dose: Infused Documented By: Admin: 01/26/25 13:12 Dose: 400 mls/hr Documented By: LIO Cefazolin Sodium (Ancef 2000mg) 2,000 mg in 15 mls @ 3.75 mls/min IV PREOP ONE; Protocol Stop: 01/26/25 17:20 Last Admin: 01/26/25 17:30 Dose: 3.75 mls/min Documented By: [id number] Tranexamic Acid (Tranexamic Acid / 0.7% Nacl 1000mg/100ml Bag) 1,000 mg IV ONE ONE Stop: 01/26/25 17:31 Last Admin: 01/26/25 17:31 Dose: 1,000 mg Documented By: [id number] Tranexamic Acid (Tranexamic Acid / 0.7% Nacl 1000mg/100ml Bag) Confirm Administered Dose 2,000 mg IV .STK-MED ONE Stop: 01/26/25 17:28 Last Admin: 01/26/25 18:01 Dose: Not Given Documented By: AD Imaging Data Radiologist's Impression: Hip/Pelvis X-Ray 01/26/25 12:44 XR hip LT 2V w pelvis HISTORY: 84 years-old Female hip fx acute left hip pain COMPARISON: None TECHNIQUE: AP view of the pelvis with 2 views of the left hip FINDINGS: Mild to moderate osteoarthritis of the hips. Acute and comminuted fractures of the left femur involving the lesser trochanter and subtrochanteric proximal metadiaphyseal junction demonstrating mild apex medial angulation. Additionally, there is medial displacement of 3 cm and posterior disc placement about 2.5 cm. Moderate associated soft tissue swelling. Arterial calcifications. IMPRESSION: Acute, comminuted, angulated and displaced left femoral fracture as above. ACT 112: Negative or not required by law. The above report was generated using voice recognition software. It may contain grammatical, syntax or spelling errors. Electronically signed by: Kike Soria M.D. 01/26/2025 1:18 PM Chest X-Ray 01/26/25 12:45 XR chest 1V portable HISTORY: 84 years-old Female trauma acute chest trauma COMPARISON: 09/24/2020, CT chest 09/18/2020 TECHNIQUE: AP view of the chest FINDINGS: Cardiac silhouette is enlarged. Atherosclerosis of the aorta. No pneumothorax, pleural effusion or pulmonary edema. Masslike rounded opacity projects over the medial right upper lung, 4.1 cm. Left breast surgical clips. Spondylotic spurring of the spine. IMPRESSION: 1. 4.1 cm masslike right upper lung opacity warrants further characterization with contrast-enhanced CT of the chest. 2. Cardiomegaly without acute posttraumatic abnormality. ACT 112: Positive. There are findings on this exam that require communication between the performing entity and the patient following Patient Test Result Information Act ([place] Act 112) guidelines. The above report was generated using voice recognition software. It may contain grammatical, syntax or spelling errors. Electronically signed by: Kike Soria M.D. 01/26/2025 1:40 PM Discharge Plan Visit Data Chief Complaint: Trauma ED Provider: Monica Jha Discharge Problem: Closed left femoral fracture Patient Disposition: Admitted As Inpatient Condition: Fair Discharge Instructions Interventions: ED Discharge Assessment Last Done: 01/26/25 17:54 Discharge Problem: Closed left femoral fracture Qualifiers: Encounter type: initial encounter Femur location: shaft Fracture morphology: s piral Fracture alignment: displaced Qualified Code(s): S72.342A - Displaced spiral fracture of shaft of left femur, initial encounter for closed fracture
[2025-01-26] MEDS: HYDROmorphone INJ 0.5 MG/0.5 ML SYR IV STA ×2 (13:04→14:21)
[2025-01-26] MEDS: ACETAMINOPHEN 1,000 MG/100 ML VIAL IV STA (13:12)
--- NOTE | 2025-01-26 13:20 | XRay Report ---
XR hip LT 2V w pelvis HISTORY: 84 years-old Female hip fx acute left hip pain COMPARISON: None TECHNIQUE: AP view of the pelvis with 2 views of the left hip FINDINGS: Mild to moderate osteoarthritis of the hips. Acute and comminuted fractures of the left femur involvi ng the lesser trochanter and subtrochanteric proximal metadiaphyseal junction demonstrating mild apex medial angulation. Additionally, there is medial displacement of 3 cm and posterior disc placement a bout 2.5 cm. Moderate associated soft tissue swelling. Arterial calcifications. IMPRESSION: Acute, comminuted, angulated and displaced left femoral fracture as above. ACT 112: Negative or not required by law. The above report was generated using voice recognition software. It may contain grammatical, syntax o r spelling errors. Electronically signed by: Kike Soria M.D. 01/26/2025 1:18 PM
[2025-01-26 13:29] LABS: Alanine Aminotransferase 16.0 U/L (7-52); Albumin Globulin Ratio 1.0 (0.9-2); Alkaline Phosphatase 86.0 U/L (34-104); Anion Gap 13.0 (3-11); Bilirubin,Total 0.7 mg/dl (0.2-1.0); Blood Urea Nitrogen 16.0 mg/dl (6-23); Calcium 9.4 mg/dl (8.6-10.3); Carbon Dioxide 23.0 mmol/L (21-32); Chloride 95.0 mmol/L (98-107); Creatinine Clr Calc Pharmacy 32.3 ml/min; Globulin 3.7 gm/dl (2.5-4.0); Glucose 169.0 mg/dl (70-99(Fasting)); Potassium 3.9 mmol/L (3.5-5.1); Sodium 131.0 mmol/L (136-145); Total Protein 7.5 gm/dl (6.0-8.3)
--- NOTE | 2025-01-26 13:41 | XRay Report ---
XR chest 1V portable HISTORY: 84 years-old Female trauma acute chest trauma COMPARISON: 09/24/2020, CT chest 09/18/2020 TECHNIQUE: AP view of the chest FINDINGS: Cardiac silhouette is enlarged. Atherosclerosis of the aorta. No pneumothorax, pleural effusion or pu lmonary edema. Masslike rounded opacity projects over the medial right upper lung, 4.1 cm. Left breas t surgical clips. Spondylotic spurring of the spine. IMPRESSION: 1. 4.1 cm masslike right upper lung opacity warrants further characterization with contrast-enhanced CT of the chest. 2. Cardiomegaly without acute posttraumatic abnormality. ACT 112: Positive. There are findings on this exam that require communication between the performing entity and the patient following Patient Test Result Information Act ([place] Act 112) guidelines. The above report was generated using voice recognition software. It may contain grammatical, syntax o r spelling errors. Electronically signed by: Kike Soria M.D. 01/26/2025 1:40 PM
--- NOTE | 2025-01-26 13:46 | History & Physical Report ---
<Statement entered by Loni Albarado MD - 01/26/25 19:32> I have reviewed vital signs, chart notes, labs and imaging. I have personally seen, evaluated and examined the patient. I have also discussed the management of the patient with the ALISHA and I agree with the exam findings documented in the history and physical examination and the documented assessment and plan unless otherwise stated below. When I checked on she is having us flare of severe pain due to muscle spasm in her left leg she is alert hard of hearing oriented to situation, lungs are clear to auscultation bilaterally heart is regular no murmur left lower extremity with obvious deformity foreshortened and externally rotated, both legs are warm and well-perfused with good cap refill she has 2+ DP pulse on the left plan for operative repair of left femur fracture this evening she tells me that she frequently goes up 13 stairs in her house without any angina or excessive dyspnea, she has a history of pulmonary hypertension mentioned on her chart however she is not on any oxygen does not have severe lung disease. Her EKG is reassuring there are no contraindications to proceeding with urgent surgery as planned for the severe fracture I did give her extra 0.5 mg IV hydromorphone and 2.5 mg IV Valium for the pain/spasm occurring acutely I spoke with her son and at the bedside Date of Service January 26, 2025 Assessment & Plan (1) Subtrochanteric fracture of left femur: (2) Raynauds disease: (3) Hypertension: (4) CKD (chronic kidney disease): (5) Hypercholesterolemia: (6) Lung mass: Plan 84yo female presented after ground level/mechanical fall while working in her garage with loose fitting shoes. Denies LOC/syncope or head trauma. Not on blood thinners. Not confused. Landed on her left thigh/hip and resulted in immediate pain/inability to bear weight. #LEFT FEMORAL FRACTURE, ACUTE -Xray on admission w/ Acute, comminuted, angulated and displaced left femoral fracture - involving lesser trochanter and subtrochanteric proximal metadiaphyseal junction w/ medial angulation, also w/ 3cm medical and 2.5cm posterior displacement along with moderate soft tissue swelling. Noted arterial calcifications (however pulses present, cap refill wnl) Admit medical w/ telemetry Orthopedics consulted, Dr Muro Continue NPO, possible OR this afternoon Viera order to be placed IVF ordered for dehydration on exam/NPO status EKG ordered Check TSH, UA for completeness Check Vit D (on supplementation) - consider prolia Continue pain control: will make tylenol 1gm IV q8h scheduled for baseline with dilaudid 0.25mg- 0.5mg for now. Can add PO tramadol following OR (not able to take codeine, can consider alternative as well) CXR does note cardiomegaly (not new, not on diuretics, follows w/ Dr Ansari), also 4.1 cm masslike RUL opacity however again no SOB/100% on RA and can obtain CT chest outpatient vs tomorrow but do not suspect needs done for any clearance purposes DVT Proph: SCDs for now - would rec Lovenox SQ given significant fracture/history breast surgery (no prior hx DVT/PE noted) #Lung Mass - noted on imaging as above, see HPI, does have hx smoking in her teens-- consider CT chest while inpatient vs outpatient. No pleuritic CP w/ prior swelling reported and denied calf pain and is 100% on RA. Suspect tachycardia also related to acute pain from fracture, bleeding from fracture as well as dehydration and will monitor response to pain control/IVF #Raynauds- plan to continue amlodipine, DVT proph following OR as above #HTN- on amlodipine (for above), also losartan 25mg --> continue amlodipine, hold losartan w/ OR and monitor BP/Cr in AM to resume as able #HLD- can continue statin in AM DVT proph: SCDs for now, rec chemoproph w/ Lovenox SQ following intervention Dispo: admit med/telemetry, planning for OR this evening with Dr Muro and will need PT/OT following History of Present Illness Chief Complaint: fall, L hip fracture Primary Care Provider: Luis Felipe Rogers, DO 84yo female with PMHx significant for Raynauds, pulm HTN, HLD, osteoporosis, sciatica, scleroderma presented after a fall in her garage. She reports no pre- syncope and notes she believes her feet were not completely in the back of her shoes and she fell forward onto her left hip and sustained significant discomfort. She notes she was able to roll over onto her right side but has not been able to bear weight on this. Was provided 100mcg fentanyl in route by EMS and 0.5mg dilaudid in ER. Family at bedside reporting patient appearing much more comfortable compared to when she was sent in. Patient denies any CP, SOB, nausea or vomiting at present time. Denies any urinary symptoms but does report needs to urinate at this time and will have nursing place viera given xray with significant left femur fracture with angulation/displacement. Was provided mouth swab per request and dehydration on exam. Patient does report baseline sciatica in her left hip at baseline along with osteoporosis which she takes a vitamin D pill at baseline for but has never been on injections. Not on any blood thinners at baseline, no hx DVT or PE. Last ate ~9am this morning, remains NPO CXR does note mass like structure to R upper lobe, hx breast conserving surgery for breast ca on the left in the past and recs for CT chest for further eval. Not able to take morphine or Demerol per allergies as well as allergy to PCN/codeine. Tolerating the Dilaudid. Takes amlodipine for Raynauds, took this morning. Interestingly she does report she has had some swelling in her left leg this past week but no calf tenderness and pulses present at this time. Sensation intact and able to wiggle toes, ROM not attempted w/ current fracture. Discussed w/ orthopedics and plan for potential surgery this evening if cleared by anesthesia. Full code. Questions/concerns addressed at this time. Allergies Allergy/AdvReac Type Severity Reaction Status Date / Time morphine Allergy Severe nausea and Verified 12/27/24 13:42 vomiting Penicillins Allergy Unknown Unknown Verified 12/27/24 13:42 codeine AdvReac Mild NAUSEA Verified 12/27/24 13:42 meperidine AdvReac Mild NAUSEA Verified 12/27/24 13:42 Home Medications Medication Instructions Recorded Confirmed Type atorvastatin 20 mg tablet 20 mg PO QAM 10/04/18 12/27/24 History multivitamin (Multiple Vitamins 1 tab PO DAILY 09/23/21 12/27/24 History tablet) amlodipine 5 mg tablet 5 mg PO QAM 04/10/24 12/27/24 History losartan 50 mg tablet 25 mg PO QAM 04/10/24 12/27/24 History natural supplement PO .once a day 12/27/24 History Past Med/Surg History Problem List (Updated 01/26/25 @ 14:42 by Donna Layne PA-C) Lung mass Subtrochanteric fracture of left femur Situational anxiety Abnormal ECG Chronic diastolic CHF (congestive heart failure) Hypercholesterolemia Pulmonary hypertension CKD (chronic kidney disease) (Acute) Stage 3 Raynauds disease Hypomagnesemia (Acute) Osteoporosis (Chronic) Hypertension (Chronic) Medical History Bilateral pleural effusion Prediabetes 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 ansari Osteoporosis Hx of pulmonary edema (2020) required thoracentesis at [facility] Raynauds disease Hx of irritable bowel syndrome HX: breast cancer left partial mastectomy Osteoarthritis Surgical History Hx of left cataract extraction (2004) Hx of colonoscopy Hx of cholecystectomy H/O partial mastectomy left- no chemo or xrt Family History Mother Diabetes Arthritis Father Gastrointestinal disorder colostomy Sister Rheumatoid arthritis Daughter Breast cancer Grandmother (Maternal) Diabetes Asthma Social History Smoking Status: Former smoker Tobacco Type: Cigarettes Age Started Using Tobacco: 14; Age Quit Using Tobacco: 28; packs per day: 0.5; Second Hand Exposure: No; Do You Dip or Chew Tobacco: No; Hx Alcohol Use: Yes Alcohol type: wine Hx Substance Use: No Preferred Language: [place] Communication Ability: Effective Visual Impairment: No Limitations Hearing Ability: Normal Portable Trackman Required: No Beliefs That Will Affect Care: None marital status: Current Living Situation: Spouse current occupational status: retired How many Children do You have: 4 Feels Safe at Home: Yes Diet: regular caffeine: No during the past year weight has: remained stable Dental Care, Regularly: No Physical Activity Frequency: Daily Seatbelt Use: always Sunscreen Use: Yes Assistive Devices: Cane, Denture - Upper, Denture - Lower and Glasses Review of Systems 2 Review of Systems: All systems reviewed & are unremarkable except as noted in HPI & below Physical Exam 2 Physical Exam: General: 84yo female resting in bed in emergency department, son/ at bedside, mildly uncomfortable due to spasm but NAD HEENT: head atraumatic, normocephalic, mm DRY, trachea midline, hard of hearing Resp: slightly diminished in the bases but no wheezing/rales/crackles, 100% on RA CV: regular, tachycardic to 100-110s, no significant m/r/g, no pitting edema but LLE>RLE however calves nontender, pulses present, cap refill wnl GI: +BS, soft/NT ; no viera -- RN to place MSK/Neuro: LLE flexed and externally rotated, toes mobile and NVI/sensation intact to light touch, compartments soft, edema to L thigh, pulses present, cap refill wnl able to follow commands, not confused Psych: alert to person/place/time, cooperative Results & Data Results & Data Vital Signs (Past 12 Hours) Vital Signs Temp Pulse Pulse Resp BP BP Pulse Ox 01/26/25 13:21 107 H 26 H 132/98 100 01/26/25 13:09 112 H 25 H 180/90 H 97 01/26/25 12:46 113 H 01/26/25 12:44 36.7 C 110 H 22 162/125 H 93 01/26/25 12:38 110 H 20 162/125 H 93 01/26/25 12:38 36.7 C 110 H 22 162/125 H 93 O2 Del Method O2 Flow Rate 01/26/25 13:21 Room Air 01/26/25 13:09 Room Air 01/26/25 12:46 01/26/25 12:44 Room Air 01/26/25 12:38 Room Air 01/26/25 12:38 Room Air 0 Laboratory Results 01/26/25 12:45 01/26/25 12:45 Mag pending TSH 4.007 LFTs wnl Vitamin D 42.1 Diagnostic Findings Hip/Pelvis X-Ray 01/26/25 12:44 XR hip LT 2V w pelvis HISTORY: 84 years-old Female hip fx acute left hip pain COMPARISON: None TECHNIQUE: AP view of the pelvis with 2 views of the left hip FINDINGS: Mild to moderate osteoarthritis of the hips. Acute and comminuted fractures of the left femur involving the lesser trochanter and subtrochanteric proximal metadiaphyseal junction demonstrating mild apex medial angulation. Additionally, there is medial displacement of 3 cm and posterior disc placement about 2.5 cm. Moderate associated soft tissue swelling. Arterial calcifications. IMPRESSION: Acute, comminuted, angulated and displaced left femoral fracture as above. ACT 112: Negative or not required by law. The above report was generated using voice recognition software. It may contain grammatical, syntax or spelling errors. Electronically signed by: Kike Soria M.D. 01/26/2025 1:18 PM Chest X-Ray 01/26/25 12:45 XR chest 1V portable HISTORY: 84 years-old Female trauma acute chest trauma COMPARISON: 09/24/2020, CT chest 09/18/2020 TECHNIQUE: AP view of the chest FINDINGS: Cardiac silhouette is enlarged. Atherosclerosis of the aorta. No pneumothorax, pleural effusion or pulmonary edema. Masslike rounded opacity projects over the medial right upper lung, 4.1 cm. Left breast surgical clips. Spondylotic spurring of the spine. IMPRESSION: 1. 4.1 cm masslike right upper lung opacity warrants further characterization with contrast-enhanced CT of the chest. 2. Cardiomegaly without acute posttraumatic abnormality. ACT 112: Positive. There are findings on this exam that require communication between the performing entity and the patient following Patient Test Result Information Act ([place] Act 112) guidelines. The above report was generated using voice recognition software. It may contain grammatical, syntax or spelling errors. Electronically signed by: Kike Soria M.D. 01/26/2025 1:40 PM PG Care Time/CCT Total # of Minutes Spent Total Time Spent with Patient: Total time spent is greater than 50% in coordination of care (as documented) at patient's floor/unit and/or counseling patient: Coding Level of Care Code 14988 INT INP/OBS CARE 3/75MIN Diagnoses Subtrochanteric fracture of left femur S72.22XA Raynauds disease I73.00 Hypertension I10 CKD (chronic kidney disease) N18.9 Hypercholesterolemia E78.00 Lung mass R91.8
[2025-01-26] MEDS ORDERED: HYDROmorphone INJ 0.5 MG/0.5 ML SYR IV PRN (14:19)
[2025-01-26 14:21] LABS: Thyroid Stimulating Hormone 4.007 uIu/ml (0.300-4.500)
--- NOTE | 2025-01-26 14:31 | Orthopedic Consultation ---
Date of Service January 26, 2025 Assessment & Plan (1) Subtrochanteric fracture of left femur: Plan I reviewed the diagnosis, prognosis and treatment options with her son and in the ER. My recommendation is to proceed as soon as medically safe with closed open reduction and internal fixation with a cephalomedullary nail. We discussed blood loss, pain syndromes, nonunion, malunion, infection, symptomatic hardware, and need for revision surgeries as all potential risks. The nonsurgical alternative is bedrest with traction. I recommend proceeding as early as today with surgical stabilization if medically cleared otherwise. Informed consent discussion was had and will document in the preop holding area. History of Present Illness Reason for Consultation: Left femur fracture Requesting Physician: . 84-year-old female admitted from the emergency room after a fall in her garage directly onto the her side of her thigh. This resulted immediate pain and deformity. She reports she had been in her usual good health when the injury happened. She does have a diagnosis of osteoporosis. She has some sciatica symptoms on that side by her report. She works with a chiropractor and has had physical therapy for the symptoms. Allergies Allergy/AdvReac Type Severity Reaction Status Date / Time morphine Allergy Severe nausea and Verified 12/27/24 13:42 vomiting Penicillins Allergy Unknown Unknown Verified 12/27/24 13:42 codeine AdvReac Mild NAUSEA Verified 12/27/24 13:42 meperidine AdvReac Mild NAUSEA Verified 12/27/24 13:42 Home Medications Medication Instructions Recorded Confirmed Type atorvastatin 20 mg tablet 20 mg PO QAM 10/04/18 12/27/24 History multivitamin (Multiple Vitamins 1 tab PO DAILY 09/23/21 12/27/24 History tablet) amlodipine 5 mg tablet 5 mg PO QAM 04/10/24 12/27/24 History losartan 50 mg tablet 25 mg PO QAM 04/10/24 12/27/24 History natural supplement PO .once a day 12/27/24 History Past Med/Surg History Problem List (Updated 01/26/25 @ 14:29 by Lloyd Muro MD) Subtrochanteric fracture of left femur Situational anxiety Abnormal ECG Chronic diastolic CHF (congestive heart failure) Hypercholesterolemia Pulmonary hypertension CKD (chronic kidney disease) (Acute) Stage 3 Raynauds disease Hypomagnesemia (Acute) Osteoporosis (Chronic) Hypertension (Chronic) Medical History Bilateral pleural effusion Prediabetes 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 yanely Velazco Hx of pulmonary edema (2020) required thoracentesis at [facility] Raynauds disease Hx of irritable bowel syndrome HX: breast cancer left partial mastectomy Osteoarthritis Surgical History Hx of left cataract extraction (2004) Hx of colonoscopy Hx of cholecystectomy H/O partial mastectomy left- no chemo or xrt Family History Mother Diabetes Arthritis Father Gastrointestinal disorder colostomy Sister Rheumatoid arthritis Daughter Breast cancer Grandmother (Maternal) Diabetes Asthma Social History Smoking Status: Former smoker Tobacco Type: Cigarettes Age Started Using Tobacco: 14; Age Quit Using Tobacco: 28; packs per day: 0.5; Second Hand Exposure: No; Do You Dip or Chew Tobacco: No; Hx Alcohol Use: Yes Alcohol type: wine Hx Substance Use: No Preferred Language: Polish Communication Ability: Effective Visual Impairment: No Limitations Hearing Ability: Normal Local Combination Truck Driver Required: No Beliefs That Will Affect Care: None marital status: Current Living Situation: Spouse current occupational status: retired How many Children do You have: 4 Feels Safe at Home: Yes Diet: regular caffeine: No during the past year weight has: remained stable Dental Care, Regularly: No Physical Activity Frequency: Daily Seatbelt Use: always Sunscreen Use: Yes Assistive Devices: Cane, Denture - Upper, Denture - Lower and Glasses Review of Systems All systems reviewed & are unremarkable except as noted in HPI & below. Physical Exam Left lower extremity: Held in a flexed and externally rotated position. Positive DF/PF/EHL. Sensation grossly intact to light touch in all foot distributions. Palpable DP pulse. Constitutional WD/WN, vitals as above no acute distress and not intoxicated appearing Respiratory normal respiratory effort; no labored breathing Cardiovascular Extremities: normal capillary refill Results & Data Results & Data Laboratory Results H & H 01/26/25 Range/Units 12:45 Hgb 13.3 (12.0-16.0) g/dl Hct 38.3 (37.0-47.0) % Diagnostic Findings X-rays of the femur demonstrated a large segmental fracture with comminution to the subtrochanteric region of the left femur. PG Care Time/CCT Total # of Minutes Spent Total Time Spent with Patient: Total time spent is greater than 50% in coordination of care (as documented) at patient's floor/unit and/or counseling patient: Coding Level of Care Code 71447 IN/OBS CONSULT LVL 4,60M (57 - DECISION FOR SURGERY) Diagnoses Subtrochanteric fracture of left femur S72.22XA
[2025-01-26] MEDS: SODIUM CHLORIDE 0.9% 1,000 ML IV SCH (14:37)
[2025-01-26 14:55] LABS: Magnesium 1.8 mg/dl (1.7-2.4)
[2025-01-26 15:02] LABS: Appearance Urine Clear (Clear); Glucose Urine UA Negative (Negative)
[2025-01-26] MEDS ORDERED: LIDOCAINE 2% 2 ML VIAL/AMP(20MG/ML) INFIL ONE (15:32)
[2025-01-26] MEDS ORDERED: ONDANSETRON INJ 2 MG/ML 2 ML VIAL ONE (15:32)
[2025-01-26] MEDS ORDERED: PROPOFOL IV EMULSION 10 MG/ML 20 ML VIAL IV ONE (15:32)
[2025-01-26] MEDS ORDERED: DEXAMETHASONE SOD INJ 4 MG/ML VIAL ONE (15:32)
[2025-01-26] MEDS ORDERED: ROCURONIUM BROMIDE 10 MG/ML 5 ML VIAL IV ONE (15:32)
--- NOTE | 2025-01-26 15:42 | Anesthesiology Consultation ---
Date of Service January 26, 2025 Assessment & Plan Chart Review Chart Review: Acceptable Risk for Surgery, Patient NOT seen in Pre Admission Testing and supervisor stage carpentry initiated Consults Requested none History Surgery Operation Date: 01/26/25 17:00 Proposed Procedures p Intramedullary Regis Femur(Left) - Lloyd Muro MD Height/Weight Height: 5 ft 2 in Weight: 61.6 kg Allergies Allergy/AdvReac Type Severity Reaction Status Date / Time morphine Allergy Severe nausea and Verified 01/26/25 15:10 vomiting Penicillins Allergy Unknown Unknown Verified 01/26/25 15:10 codeine AdvReac Mild NAUSEA Verified 01/26/25 15:10 meperidine AdvReac Mild NAUSEA Verified 01/26/25 15:10 Medications Home Medications Medication Instructions Recorded Confirmed Last Taken atorvastatin 20 mg tablet 20 mg PO QAM 10/04/18 01/26/25 01/26/25 amlodipine 5 mg tablet 5 mg PO QAM 04/10/24 01/26/25 01/26/25 acetaminophen 500 mg tablet 500 mg PO Q6H PRN Pain 01/26/25 01/26/25 01/26/25 losartan 25 mg tablet 25 mg PO QAM 01/26/25 01/26/25 01/26/25 Active Medications Generic Name Dose Route Start Last Admin Trade Name Freq PRN Reason Stop Dose Admin Sodium Chloride 1,000 mls @ 75 mls/hr 01/26/25 14:15 01/26/25 14:37 Nss IV 01/29/25 14:14 75 mls/hr .[id number] CHAY Administration Past Medical History Medical History Bilateral pleural effusion Prediabetes 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 [place] Osteoporosis Hx of pulmonary edema (2020) required thoracentesis at [facility] Raynauds disease Hx of irritable bowel syndrome HX: breast cancer left partial mastectomy Osteoarthritis Past Family History Family History Mother Diabetes Arthritis Father Gastrointestinal disorder colostomy Sister Rheumatoid arthritis Daughter Breast cancer Grandmother (Maternal) Diabetes Asthma Past Surgical History Surgical History Hx of left cataract extraction (2004) Hx of colonoscopy Hx of cholecystectomy H/O partial mastectomy left- no chemo or xrt Social History Smoking Status: Former smoker Do You Dip or Chew Tobacco: No Hx Alcohol Use: Yes Alcohol type: wine alcohol intake frequency: holidays/special occasions only Hx Substance Use: No substance use type: does not use Physical Exam Vital Signs Last Vital Signs Temp 36.7 C 01/26/25 12:44 Pulse 116 H 01/26/25 14:00 Resp 18 01/26/25 14:00 BP 167/117 H 01/26/25 14:00 Pulse Ox 97 01/26/25 14:00 O2 Del Method Room Air 01/26/25 14:00 O2 Flow Rate 0 01/26/25 12:38 Testing Laboratory Results 01/26/25 12:45 01/26/25 12:45 Urine Color Yellow 01/26/25 14:38 Urine Appearance Clear (Clear) 01/26/25 14:38 Urine pH 8.5 (4.5-7.5) H 01/26/25 14:38 Ur Specific [place] 1.010 (1.000-1.030) 01/26/25 14:38 Urine Protein Negative (Negative) 01/26/25 14:38 Urine Glucose (UA) Negative (Negative) 01/26/25 14:38 Urine Ketones Trace (Negative) H 01/26/25 14:38 Urine Nitrite Negative (Negative) 01/26/25 14:38 Ur Leukocyte Esterase Negative (Negative) 01/26/25 14:38 Blood Type A Positive 01/26/25 13:03 Antibody Screen NEGATIVE 01/26/25 13:03 Electrocardiogram Date: 01/26/25 Findings: + RBBB and + ST @ (115) Echocardiogram Date: 11/19/20 EF: 55-60 LV Function: normal Valvular Disease: + no significant valvular disease
[2025-01-26] MEDS: diazePAM 5 MG/ML 10ML VIAL IV STA (15:50)
[2025-01-26] MEDS ORDERED: PHENYLEPHRINE HCL 10 MG/ML VIAL ONE (16:35)
[2025-01-26] MEDS ORDERED: SUGAMMADEX SODIUM 200 MG/2 ML VIAL IV ONE (16:36)
[2025-01-26] MEDS ORDERED: POLYETHYLENE (MIRALAX) 17 GM PACK PO PRN (16:55)
[2025-01-26] MEDS ORDERED: ONDANSETRON INJ 2 MG/ML 2 ML VIAL IV PRN (16:55)
[2025-01-26] MEDS: TRANEXAMIC ACID / 0.7% NACL 1000MG/100ML BAG IV ONE ×2 (17:31)
[2025-01-26] MEDS: TRANEXAMIC ACID 1,000 MG in SODIUM CHLORIDE 0.9% 100 ML IR ONE (18:55)
[2025-01-26] MEDS: BUPIVACAINE/EPINEPHRINE 0.5% MPF 1:200,000 30 ML VIAL ONE (18:59)
[2025-01-26] MEDS ORDERED: SOD PHOSPHATE/SOD BIPHOSPHATE ENEMA 132 ML BTL PR PRN (19:35)
[2025-01-26] MEDS ORDERED: ATROPINE SULFATE 0.1 MG/ML 10ML SYR IV PRN (19:38)
--- NOTE | 2025-01-26 19:43 | Anesthesiology Progress Note ---
Date of Service January 26, 2025 Anesthesia Post Procedure Vital Signs Vital Signs: Temp Pulse Pulse Resp BP BP Pulse Ox 01/26/25 19:40 96 H 20 151/62 H 97 01/26/25 19:35 98 H 19 173/75 H 97 01/26/25 19:26 36.3 C L 96 H 19 169/79 H 97 01/26/25 16:40 108 H 01/26/25 16:40 36.5 C 116 H 22 145/73 H 98 01/26/25 15:00 113 H 28 H 171/83 H 100 01/26/25 14:00 116 H 18 167/117 H 97 01/26/25 13:58 113 H 20 132/98 100 01/26/25 13:44 113 H 24 132/98 100 01/26/25 13:21 107 H 26 H 132/98 100 01/26/25 13:09 112 H 25 H 180/90 H 97 01/26/25 12:46 113 H 01/26/25 12:44 36.7 C 110 H 22 162/125 H 93 01/26/25 12:38 110 H 20 162/125 H 93 01/26/25 12:38 36.7 C 110 H 22 162/125 H 93 O2 Del Method O2 Flow Rate 01/26/25 19:40 Oxymask 4 01/26/25 19:35 Oxymask 10 01/26/25 19:26 Oxymask 10 01/26/25 16:40 01/26/25 16:40 Nasal Cannula 2 01/26/25 15:00 Room Air 01/26/25 14:00 Room Air 01/26/25 13:58 Room Air 01/26/25 13:44 Room Air 01/26/25 13:21 Room Air 01/26/25 13:09 Room Air 01/26/25 12:46 01/26/25 12:44 Room Air 01/26/25 12:38 Room Air 01/26/25 12:38 Room Air 0 Pain Intensity Left Hip: Pain Intensity: 7 Transfer of Care Handoff Completed per policy Notes Mental Status: alert / awake / arousable Patient Amnestic to Procedure: Yes Nausea / Vomiting: adequately controlled Pain: adequately controlled Airway Patency, RR, SpO2: stable & adequate BP & HR: stable & adequate Hydration State: stable & adequate Anesthetic Complications: no major complications apparent and Pt Satisfied with anesthetic care
--- NOTE | 2025-01-26 19:59 | Operative Report ---
PG Post Operative Report Pre & Post Diagnosis Operation Date: 01/26/25 17:00 Pre-Op Diagnosis: Subtrochanteric fracture of left femur Post-Op Diagnosis: Subtrochanteric fracture of left femur I identified the patient and participated in the time-out.: Yes Procedure Operation Date: 01/26/25 17:00 Actual Procedures p Left proximal femur fracture closed reduction and internal fixation with cephalomedullary nail (Left) - Lloyd Muro MD Surgeon Lloyd Muro MD Gasoline Dragline Operator Miguel Agee PA-C Estimated Blood Loss 150 Findings See Below Comminuted subtrochanteric fracture All Synthes implants: 11 mm/130 degree titanium cannulated trochanteric fixation nail of 360 mm length. 11.0 mm titanium helical blade of 85 mm length block for rotation and collapse. 1 static and 1 sliding distal interlock screw measuring 34 and 36 mm. Specimens none Anesthesia Type MAC Spinal Regional Complications none Disposition Accompanied Patient To Recovery: No Disposition: Surgical ICU Indications 84-year-old female sustained fall onto her left side in her garage resulting immediate pain and inability to ambulate. She was brought to the emergency room, where a subtrochanteric femur fracture was diagnosed. There was a high degree of pain. She was otherwise good health and had been appropriately without food for anesthesia. Denies previous fractures but known osteoporosis. She does have a history of sciatica on that side. I reviewed the diagnosis, prognosis and recommended treatment of surgical stabilization of the subtrochanteric femur fracture with a open or close reduction and cephalomedullary nail fixation. After discussion of the risks, benefits, and alternatives to surgical care, the patient and her family were interested in treatment with surgery. Informed consent was obtained in the emergency room. Description of Procedure On the day of surgery should be was greeted in the preoperative holding area and the informed consent was reviewed and confirmed. The surgical site was then identified by the patient and signed by myself. The patient was taken to the operating placed by the OR table and anesthesia was induced. The patient was then positioned on the fracture table. All sammi prominences were well padded. The feet were placed in the [place] table traction boots with abundant padding. We then positioned the lower extremities in a scissor fashion with a non-op leg flexed down to allow visualization with fluoroscopy which was confirmed before we prepped and draped. Surgical timeout was called and verified by all present. Antibiotics and TXA were infused, and equipment was available and functional. The procedure was initiated with a closed reduction maneuvers. Gentle in-line traction pulled the fracture out to length. There was a high degree of subtrochanteric comminution. We did manually apply pressure to get adequate alignment. The limb was then internally rotated to reduce the proximal femur. Flexion and adduction were used to adjust the reduction and allow access to the greater trochanter. We had adequate reduction prior to prepping and draping. The leg was then prepped and draped in usual sterile fashion. Surgical timeout was reconfirmed. We initiated the surgical internal fixation portion with finding the start point with the tip of the greater trochanter. Fluoroscopic guidance was used and a small poke hole was established. The start point was confirmed on fluoroscopy in AP and lateral planes and the pin was advanced using a mallet. An incision was made about the pin to allow access for the reamers. The pin was then advanced past the lesser trochanter, and its position was confirmed using AP and lateral fluoroscopy. Using the protective sleeve, the opening reamer was advanced under power with fluoroscopic guidance over the guidepin. The reduction wire was then advanced down the distal femur to the level of the superior pole of the patella. Any reduction maneuvers were performed to align the shaft. The distal fragment medial laterally placed pressure and anterior translation aligned up the past the wire measurement was taken from the tip of the trochanter down to the end of the guidewire, and the 360 mm was selected. We then began sequential reaming. We started with 9.0 and used fluoroscopy to guide our reaming. We advanced the reaming in gradual increments up to a 12.5. An 11 mm nail was loaded onto the jig and advanced manually down the canal, while ensuring maintenance of the reduction on fluoroscopy. We then tapped it down into place until we achieve the good position for our cephalo-medullary screw. The cannula was placed on the jig to allow positioning of the cephalo-medullary screw. The skin incision was made in the appropriate spot. The jig cannulas were then placed against the lateral cortex. The cephalo-medullary screw guidepin was advanced towards the femoral head. The center-center position was confirmed on fluoroscopy in AP and lateral planes. The length of the screw was measured off the guide. The helical blade screw was then opened on the back table and prepared on the screwdriver. The lateral cortical opening drill, followed by the triple drill reamer for the helical blade was advanced under fluoroscopic guidance. The helical blade was advanced over the guidepin to appropriate position. The helical blade was locked in rotation and then the traction was taken off. Fluoroscopy confirmed maintenance of reduction and adequate position of the implant. The lateral compression sleeve was used to align the nail more centrally in the canal. No compression was needed through the intertrochanteric region because of the subtrochanteric fracture. Attention was then directed distally to perform the interlock screws in using perfect [place] technique. 1 interlock screw was placed with a 5 mm diameter in the proximal static hole, followed by another screw through the dynamic sliding hole for rotational stability potential dynamization if there is any delay in healing. The lengths were measured using a depth gauge, with fluoroscopic guidance. This completed the fixation. This completed the fixation of the fracture. Fluoroscopy was used in both AP and lateral planes to evaluate the entirety of the fracture and implant. Reduction and implant positions were acceptable. The wounds were then thoroughly irrigated with bulb syringe and normal saline. A total of 30 cc of local anesthetic (0.5% Marcaine with epinephrine) was infused to the wounds. The deep fascial layer was approximated with 0 Vicryl suture. The dermal layer was approximated using 2-0 Vicryl suture. The final skin closure was completed with mercedes. Wounds were dressed with sterile Xeroform, sterile gauze, and Ioban over ABDs. The patient tolerated procedure well, awoke from anesthesia without complication, was extubated in the operating room, and transferred to the PACU in stable condition. Disposition: The patient be weightbearing as tolerated. Per orthopedic trauma Association guidelines, I recommend oral aspirin therapy for DVT prophylaxis unless the primary team feels strongly otherwise. DVT prophylaxis should last 6 weeks. 24 hours of antibiotic prophylaxis should be continued. Physician melter assistant attestation: Miguel Agee PA-C was present and scrubbed for the duration of the case. He was essential to prepping/draping, patient positioning, retraction, and assistance with wound closure. I attest to the content of the Intraoperative Record and any orders documented therein. Any exceptions are noted below.
[2025-01-26] MEDS: ONDANSETRON INJ 2 MG/ML 2 ML VIAL IV PRN (20:20)
[2025-01-26] MEDS: ACETAMINOPHEN 1,000 MG/100 ML VIAL IV SCH (21:57)
[2025-01-27 06:41] LABS: Hematocrit (blood only) 29.1 % (37.0-47.0); Hemoglobin 9.9 g/dl (12.0-16.0); Mean Corpuscular Hemoglobin 29.6 pg (25.0-34.0); Mean Corpuscular Volume 86.9 fL (80.0-100.0); Platelet Count 289 K/uL (130-400); RDW Standard Deviation 43.8 fL (36.4-46.3); Red Blood Count 3.35 M/uL (4.20-5.40); White Blood Count 11.25 K/ul (4.8-10.8)
[2025-01-27 06:51] LABS: Anion Gap 7.0 (3-11); Blood Urea Nitrogen 18.0 mg/dl (6-23); Calcium 8.0 mg/dl (8.6-10.3); Carbon Dioxide 27.0 mmol/L (21-32); Chloride 98.0 mmol/L (98-107); Creatinine Clr Calc Pharmacy 31.0 ml/min; Glucose 132.0 mg/dl (70-99(Fasting)); Potassium 4.4 mmol/L (3.5-5.1); Sodium 132.0 mmol/L (136-145)
[2025-01-27 07:53] LABS: Immature Granulocytes # (auto) 0.04 K/uL (0.01-0.20); Immature Granulocytes % (auto) 0.4 %
--- NOTE | 2025-01-27 08:12 | Fluoroscopy Report ---
FL hip LT 2-3V CLINICAL HISTORY: LT TROCHNAIL COMPARISON STUDY: 01/26/2025 FLUOROSCOPY TIME: 157 seconds FLUOROSCOPY IMAGES: 9 EXPOSURE DOSE: 22 mGy FINDINGS: Fluoroscopy was provided for placement of left femoral gamma nail. IMPRESSION: Intraoperative fluoroscopy. ACT 112: Negative or not required by law. Electronically signed by: Roger Hawkins M.D. 01/27/2025 8:11 AM
--- NOTE | 2025-01-27 08:13 | Hospitalist Progress Note ---
Date of Service January 27, 2025 Assessment & Plan (1) Subtrochanteric fracture of left femur: (2) Raynauds disease: (3) Hypertension: (4) CKD (chronic kidney disease): (5) Hypercholesterolemia: (6) Lung mass: (7) Acute blood loss anemia: Plan 84yo female presented after ground level/mechanical fall while working in her garage with loose fitting shoes. Denies LOC/syncope or head trauma. Not on blood thinners. Not confused. Landed on her left thigh/hip and resulted in immediate pain/inability to bear weight. #Left femur fracture -Xray on admission w/ Acute, comminuted, angulated and displaced left femoral fracture - involving lesser trochanter and subtrochanteric proximal metadiaphyseal junction w/ medial angulation, also w/ 3cm medical and 2.5cm posterior displacement along with moderate soft tissue swelling. Noted arterial calcifications (however pulses present, cap refill WNL) Admit medical w/ telemetry Orthopedics consult appreciate OR with Dr. Muro on 01/26 Daily [place]a catheter management TSH, UA, and vitamin D level WNL Multimodal pain regimen: IV pain regimen discontinued on 01/27 Scheduled acetaminophen 1000 mg p.o. q8h Tramadol 50 mg p.o. q6h PRN for breakthrough pain PT/OT evaluations appreciated; WBAT Recommending acute rehab Case management consult appreciated #Acute blood loss anemia Hgb dropped from 13.3 -> 9.9 on POD #1 Suspect perioperative drop in Hgb following surgery / IVF dilution overnight Clinically, no active bleeding on physical exam appreciated Spotcheck H&H on the afternoon of 01/27, prior to starting chemical DVT PPx #Abnormal CXR CXR does note cardiomegaly (not new, not on diuretics, follows w/ Dr Ansari), also 4.1 cm masslike RUL opacity however again no SOB/100% on RA and can obtain CT chest outpatient vs tomorrow, but do not suspect needs done for any clearance purposes #Lung Mass - noted on imaging as above, see HPI, does have hx smoking in her teens-- consider CT chest while inpatient vs outpatient. No pleuritic CP w/ prior swelling reported and denied calf pain and is 100% on RA. Suspect tachycardia also related to acute pain from fracture, bleeding from fracture as well as dehydration and will monitor response to pain control/IVF #Raynauds- plan to continue amlodipine, DVT proph following OR as above #HTN-continue amlodipine, losartan #HLD- can continue statin in AM DVT proph: SCDs for now; plans to start Lovenox 30 mg SQ QPM on the evening of 01/27 pending H&H trend Disposition: Continued stay on MedSurg telemetry; referral made to [facility] Spoke on the phone with patient's daughter (Freida) on 01/27 and provided updates regarding surgery, rehab recommendations, and perioperative labs. Daughter was appreciative of call. She plans to come up to the hospital on Monday 01/29. Admission and Anticipated Discharge Date Admission Date: January 26, 2025 Subjective Mrs. Hutchins is resting peacefully in bed this morning, in no acute distress. She reports she does not have any pain at rest. No numbness or tingling going down her left leg; occasional numbness in the toes bilaterally, which patient attributes to Raynaud's. Left leg pain exacerbated by movements. Patient reports she has not had any prior surgeries on her left leg before. While she had difficulty sleeping last night, she reports it was not due to any pain in her left leg. Eating and drinking well this morning. She lives at home with her , and normally ambulates with a cane at baseline. ROS: Patient endorses left hip/knee pain with movements, and 1 episode of nausea and vomiting (yesterday following surgery; resolved). Patient denies fever, chills, lightheadedness when sitting up on the side of the bed, headaches, chest pain, chest palpitations, SOB, pleuritic CP, cough, diarrhea, changes in urinary or bowel habits, saddle anesthesia, or numbness or tingling going down the left leg. Review of Systems Review of Systems: See HPI above Physical Exam Physical Exam: General: no acute distress; pleasant affect; non-toxic appearing; frail appearing; cooperative; SpO2 100% on RA HEENT: normocephalic, atraumatic; no scleral icterus; PERRLA; vision and hearing intact Neck: supple; no lymphadenopathy; trachea midline Skin: warm, dry without signs of tenting; no cyanosis; no rashes, bruising, lesions, or erythema noted CV: chest wall NTP; RRR; S1/S2 normal; no murmurs/rubs/gallops; pulses intact and symmetric at radial, DP, and PT Lungs: no acute respiratory distress; symmetrical chest wall expansion; clear breath sounds across all lung fierro w/o adventitious sounds; no wheezing ABD: Soft, NTP; BS present; no rebound/guarding; no distention LEs: Patient demonstrates 0 to wiggle toes/plantarflex/dorsiflex bilaterally without unilateral deficits; bending of the right knee elicits pain in the left leg/hip Left hip: Surgical dressing in place with swelling; no signs of erythema, drainage, or acute infection MSK: no tics or fasciculations; no edema noted in the LEs b/l, nonerythematous (SCDs in place); feet neurovascular intact assessed at the DP/PT pulses bilateral Neuro: A&Ox3; normal mood and affect; fluent speech; no focal deficits; patient reports sensation is intact and symmetric in the lower extremities bilaterally Results & Data Results & Data Vital Signs (Past 12 Hours) Vital Signs Temp Pulse Pulse Pulse Resp BP Pulse Ox 01/27/25 07:52 36.6 C 96 H 20 152/69 H 100 01/27/25 07:30 85 01/27/25 03:15 36.4 C L 92 H 16 113/72 99 01/27/25 02:15 36.4 C L 93 H 18 119/66 99 01/27/25 01:15 36.5 C 89 20 127/62 98 01/27/25 00:15 36.5 C 88 16 118/69 100 01/26/25 23:15 36.4 C L 91 H 16 113/70 99 01/26/25 22:15 36.6 C 102 H 18 117/67 100 01/26/25 21:45 36.2 C L 93 H 18 137/76 100 01/26/25 21:44 95 H 01/26/25 21:16 01/26/25 21:16 36.4 C L 108 H 20 136/69 95 01/26/25 20:55 36.4 C L 100 H 14 144/63 H 96 01/26/25 20:45 101 H 20 160/63 H 96 01/26/25 20:35 101 H 22 139/70 96 01/26/25 20:25 103 H 22 166/72 H 97 01/26/25 20:15 99 H 24 154/64 H 96 O2 Del Method O2 Flow Rate 01/27/25 07:52 Room Air 01/27/25 07:30 01/27/25 03:15 Nasal Cannula 2 01/27/25 02:15 Nasal Cannula 2 01/27/25 01:15 Nasal Cannula 2 01/27/25 00:15 Nasal Cannula 2 01/26/25 23:15 Nasal Cannula 2 01/26/25 22:15 Nasal Cannula 2 01/26/25 21:45 Nasal Cannula 2 01/26/25 21:44 01/26/25 21:16 Nasal Cannula 2 01/26/25 21:16 Nasal Cannula 2 01/26/25 20:55 Nasal Cannula 2 01/26/25 20:45 Nasal Cannula 2 01/26/25 20:35 Nasal Cannula 2 01/26/25 20:25 Nasal Cannula 2 01/26/25 20:15 Nasal Cannula 2 PG Care Time/CCT Total # of Minutes Spent Total Time Spent with Patient: Total time spent is greater than 50% in coordination of care (as documented) at patient's floor/unit and/or counseling patient: Coding [place] [address] SUB INP/OBS CARE 3/50MIN Patient Type Established Medical Decision Making High Complexity Diagnoses Subtrochanteric fracture of left femur S72.22XA Raynauds disease I73.00 Hypertension I10 CKD (chronic kidney disease) N18.9 Hypercholesterolemia E78.00 Lung mass R91.8 Acute blood loss anemia D62
[2025-01-27] MEDS: HYDROmorphone INJ 0.5 MG/0.5 ML SYR IV PRN (08:14)
[2025-01-27] MEDS: LOSARTAN POTASSIUM 25 MG TAB PO SCH (08:23)
[2025-01-27] MEDS: ASPIRIN 81 MG ECTAB PO SCH (08:29)
[2025-01-27] MEDS: ATORVASTATIN 20 MG TAB PO SCH (08:29)
--- NOTE | 2025-01-27 08:38 | XRay Report ---
EXAM: XR hip LT min 2V CLINICAL HISTORY: Post-Operative implant position. TECHNIQUE: X-ray images of the left hip joints were obtained in anteroposterior (AP) and lateral projections. COMPARISON: No prior studies available for comparison. FINDINGS: Pelvic Bones: Cortical irregularity along left anterior superior iliac spine is likely enthesophytes. No evidence of pelvic bone fractures, dislocations. Acetabular structures appear normal and intact. No signs of acetabular fracture or dysplasia. Hip Joints: Status post internal fixation in left femur with underlying comminuted fractures in proximal shaft and minimally displaced lesser trochanter. Regis and screws intact, no fracture or loosening. Mild degenerative changes in left hip and knee joints. Soft Tissues: Multiple air lucencies in soft tissues along left hip joint and surgical mercedes likely post-operative changes. Small calcific foci seen in soft tissue on the medial aspect of the femur. Vascular calcifications along knee joint. Additional Findings: No other significant abnormalities were noted. IMPRESSION: 1. Status post internal fixation in left femur with underlying comminuted fractures in proximal shaft and minimally displaced lesser trochanter. 2. Regis and screws intact, no fracture or loosening. 3. Mild degenerative changes in left hip and knee joints. 4. Multiple air lucencies in soft tissues along left hip joint and surgical mercedes likely post-operative changes. 5. Small calcific foci seen in soft tissue on the medial aspect of the femur. Disclaimer: A subtle bone abnormality or fracture may not be readily apparent on X-rays, thus clinical correlation and further imaging including follow-up CT, MRI, or follow-up X-rays are advised as needed. Electronically signed by Leroy Oliveros 01-27-2025 08:38 AM
--- NOTE | 2025-01-27 09:16 | Orthopedic Progress Note ---
Date of Service January 27, 2025 Assessment & Plan (1) Closed left femoral fracture: * Continue Current Treatment * Disposition: TBD * Daily treatment: Physical Therapy/ Occupational Therapy per protocol * Weight bearing status: WBAT * Continue to monitor for ABLA * Pain control * DVT prophylaxis per primary team, recommend ASA 81mg BID x6 weeks postop * Office/hospital f/u 2 weeks for progress check and staple/suture removal * Remainder care per primary team * Stable for discharge from ortho procedure standpoint, further planning per primary team Subjective . Active Problems: S/p L TFN POD 1 84 y/o female s/p left TFN. Doing well overall, pain managed and improved function. Denies fever/chills, chest pain/SOB, nausea/vomiting. Otherwise no complaints. Review of Systems All systems reviewed & are unremarkable except as noted in HPI & below. Physical Exam .Left thigh surgical dressing CDI, not removed for exam. Otherwise no obvious deformity or overlying skin changes. Diffuse TTP proximal thigh and hip region. Otherwise no specific tenderness of distal thigh, lower leg, foot/ankle. Pain with log roll, ROM hip. AROM foot/ankle intact. Sensation intact plantar/dorsal foot. Brisk capillary refill. Results & Data Results & Data Laboratory Results . Diagnostic Findings . PG Care Time/CCT Total # of Minutes Spent Total Time Spent with Patient: Total time spent is greater than 50% in coordination of care (as documented) at patient's floor/unit and/or counseling patient: Coding Level of Care Code 89100 Post Operative Follow-Up Diagnoses Closed left femoral fracture S72.342A Encounter type: initial encounter Femur location: shaft Fracture alignment: displaced Fracture morphology: spiral (1) Closed left femoral fracture Encounter type: initial encounter Femur location: shaft Fracture alignment: displaced Fracture morphology: spiral Qualified Code(s): S72.342A - Displaced spiral fracture of shaft of left femur, initial encounter for closed fracture
--- NOTE | 2025-01-27 09:20 | Electrocardiogram Report ---
Test Reason : Blood Pressure : */* mmHG Vent. Rate : 115 BPM Atrial Rate : 115 BPM P-R Int : 166 ms QRS Dur : 120 ms QT Int : 352 ms P-R-T Axes : 59 -70 52 degrees QTcB Int : 486 ms Sinus tachycardia Right bundle branch block Left anterior fascicular block Bifascicular block Poor R wave progression, consider anterior ME vs. lead placement vs. LVH Abnormal ECG When compared with ECG of 18-Sep-2020 17:30, Minimal criteria for Anterior infarct are now Present Confirmed by Camilo Ansari ([id number]) on 01/27/2025 9:20:33 AM Referred By: REFERRED SELF Confirmed By: Camilo Ansari
[2025-01-27 09:46] LABS: Prealbumin 12.0 mg/dl (20-40)
[2025-01-27] MEDS: ACETAMINOPHEN 500 MG TAB PO SCH (13:23)
[2025-01-27 18:11] LABS: Hematocrit (blood only) 25.5 % (37.0-47.0); Hemoglobin 8.7 g/dl (12.0-16.0)
--- NOTE | 2025-01-27 19:28 | Communication Note ---
Addendum at 1920: Patient's Hgb continued to downtrend 9.9->8.7. Not on fluids throughout the day; do not suspect this drop is secondary to volume dilution. HOLD evening dose of aspirin and lovenox. Clinically, patient reported no hip or thigh pain while at rest today, and while left thigh was edematous, there were no acute signs of bleed on physical exam. However, if patient were to become hypotensive or tachycardic overnight, would have low threshold to obtain CT of the left hip. Discussed with Dr. Albarado. Signed out to overnight team. Date of Service: January 27, 2025
[2025-01-27] MEDS ORDERED: ENOXAPARIN INJ 30 MG/0.3 ML SYR SQ SCH (21:00)
--- NOTE | 2025-01-28 08:59 | Orthopedic Progress Note ---
Date of Service January 28, 2025 Assessment & Plan (1) Closed left femoral fracture: * Continue Current Treatment * Disposition: TBD * Daily treatment: Physical Therapy/ Occupational Therapy per protocol * Weight bearing status: WBAT * Continue to monitor for ABLA * Pain control * DVT prophylaxis per primary team, recommend ASA 81mg BID x6 weeks postop * Office/hospital f/u 2 weeks for progress check and staple/suture removal * Remainder care per primary team * Stable for discharge from ortho procedure standpoint, further planning per primary team Subjective Active Problems: S/p L TFN POD 2 84 y/o female s/p left TFN. Doing well overall, pain managed and improved function. Denies fever/chills, chest pain/SOB, nausea/vomiting. Otherwise no complaints. Review of Systems All systems reviewed & are unremarkable except as noted in HPI & below. Physical Exam * General: Alert and oriented, no acute distress * Constitutional: well-developed, well-nourished. * Respiratory: Normal respiratory effort, no distress * Gastrointestinal: No tenderness to palpation, no rigidity or guarding. * Skin: No rash or lesion. * Neurologic: Grossly normal * Musculoskeletal: Left thigh surgical dressing CDI, not removed for exam. Otherwise no obvious deformity or overlying skin changes. Diffuse TTP proximal thigh and hip region. Otherwise no specific tenderness of distal thigh, lower leg, foot/ankle. Pain with log roll, ROM hip. AROM foot/ankle intact. Sensation intact plantar/dorsal foot. Brisk capillary refill. Results & Data Results & Data Laboratory Results . Diagnostic Findings . PG Care Time/CCT Total # of Minutes Spent Total Time Spent with Patient: Total time spent is greater than 50% in coordination of care (as documented) at patient's floor/unit and/or counseling patient: Coding Level of Care Code 64686 Post Operative Follow-Up Diagnoses Closed left femoral fracture S72.342A Encounter type: initial encounter Femur location: shaft Fracture alignment: displaced Fracture morphology: spiral (1) Closed left femoral fracture Encounter type: initial encounter Femur location: shaft Fracture alignment: displaced Fracture morphology: spiral Qualified Code(s): S72.342A - Displaced spiral fracture of shaft of left femur, initial encounter for closed fracture
[2025-01-28 09:09] LABS: Hematocrit (blood only) 27.0 % (37.0-47.0); Hemoglobin 9.2 g/dl (12.0-16.0); Immature Granulocytes # (auto) 0.03 K/uL (0.01-0.20); Immature Granulocytes % (auto) 0.3 %; Mean Corpuscular Hemoglobin 30.0 pg (25.0-34.0); Mean Corpuscular Volume 87.9 fL (80.0-100.0); Platelet Count 290 K/uL (130-400); RDW Standard Deviation 45.4 fL (36.4-46.3); Red Blood Count 3.07 M/uL (4.20-5.40); White Blood Count 10.44 K/ul (4.8-10.8)
[2025-01-28 09:29] LABS: Anion Gap 7.0 (3-11); Blood Urea Nitrogen 16.0 mg/dl (6-23); Calcium 8.1 mg/dl (8.6-10.3); Carbon Dioxide 27.0 mmol/L (21-32); Chloride 99.0 mmol/L (98-107); Creatinine Clr Calc Pharmacy 34.3 ml/min; Glucose 86.0 mg/dl (70-99(Fasting)); Potassium 4.0 mmol/L (3.5-5.1); Sodium 133.0 mmol/L (136-145)
[2025-01-28] MEDS: ASPIRIN 81 MG ECTAB PO STA (11:30)
[2025-01-28] MEDS: DICYCLOMINE HCL 10 MG CAP PO ONE (13:03)
--- NOTE | 2025-01-28 13:04 | Hospitalist Progress Note ---
"Date of Service January 28, 2025 Assessment & Plan (1) Subtrochanteric fracture of left femur: (2) Acute blood loss anemia: (3) Lung mass: (4) Hyponatremia: Plan 84yo female presented after ground level/mechanical fall while working in her garage with loose fitting shoes. Denies LOC/syncope or head trauma. Not on blood thinners. Not confused. Landed on her left thigh/hip and resulted in immediate pain/inability to bear weight. 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 Noted arterial calcifications (however pulses present, cap refill WNL) Admit medical w/ telemetry Orthopedics consult appreciate ORIF with Dr. Muro on 01/26 Recommending aspirin 81 mg BID x 6 weeks postop for DVT PPx Daily Mayorga catheter management-will remove Mayorga TSH, UA, and vitamin D level WNL Multimodal pain regimen: IV pain regimen discontinued on 01/27 Scheduled acetaminophen 1000 mg p.o. q8h Tramadol 50 mg p.o. q6h PRN for breakthrough pain Flexeril 5 mg p.o. TID PRN for muscle spasms PT/OT evaluations appreciated; WBAT Recommending acute rehab Case management consult appreciated and plan will be to transfer patient to [facility] upon discharge once medically stable; off accepted on 01/28 #Acute blood loss anemia Hgb 13.3 on arrival Following surgery, Hgb trend 9.9 -> 8.7 -> 9.2 (appears to have stabilized on 01/28) Clinically, no active bleeding on physical exam appreciated Plan to reinitiate aspirin 81 mg p.o. twice daily per orthopedics recommendation #Right upper lobe pulmonary mass Per daughter, h/o heavy tobacco cigarette smoking; quit 25y ago CXR revealed a 4.1 cm masslike RUL opacity; asymptomatic; no SOB or respiratory distress Did discuss this with patient/family at bedside, and they wish to pursue additional imaging at this time Chest CT on 01/28 reconfirmed 4 cm right upper lobe lung mass that is new when compared to 2021 study; suspicious for malignancy Discussed this with patient at bedside + daughter over the phone Will defer pulmonology consult for biopsy at this time, as patient's primary focus wants to be on recovery from her femur fx-plan to arrange follow-up with pulmonology as an outpatient #Chronic diastolic (congestive) heart failure Daily monitoring of lower extremities Caution fluid overload; strict I&O monitoring #Hyponatremia-sodium has been low since admission at 131 and now improved to 133. No urine sodium or urine osmolality study done. Is euvolemic. Could be SIADH related to pain or perhaps from pulmonary malignancy? - Follow BMP at rehab as an outpatient #Raynauds- plan to continue amlodipine #HTN-BPs are controlled to mildly elevated - Continue amlodipine, losartan #HLD- can continue statin DVT proph: SCDs; plan to reinitiate aspirin 81 mg BID on 01/28 as patient's hemoglobin is stabilized Disposition: Continued stay on MedSurg telemetry; accepted at [facility] once medically stable Spoke on the phone with patient's daughter (Freida) on 01/28 provided update regarding labs/imaging. While Freida is not the medical power of boiler service technician, she is a nurse and her parents usually go to for advice on medical decision making. Over the phone, we discussed the fact that the patient was a former heavy smoker up until 25 years ago. She does have a history of breast cancer years ago, for which she required a lumpectomy. Daughter was informed that this 4.1 cm mass in the right upper lobe was new compared to prior study in 2020. Daughter was also informed that her mother wanted to discuss the case with her before making any decisions regarding a bronchoscopy or needle biopsy. Given the patient's advanced age, it is daughter's recommendation to not have this worked up further at this time. She would like to hold off on any sort of biopsy while patient is recovering from her femur fracture. Spoke with patient at bedside and she is in agreement with this plan. Admission and Anticipated Discharge Date Admission Date: January 26, 2025 Supervising Physician Co-Signing Physician Notes BRIA Supervision Note: I did not personally see or examine the patient today, but I verified all collazo points of BRIA Loya's assessment and plan with the following excep tions/additions: None Subjective Mrs. Hutchins reports she is still having pain in her left hip today with movements. She was able to get up to her chair with physical therapy today, but it led to significant hip pain. She also notes that she has intermittent muscle spasms in her left hip, better exacerbated by movements. Patient slept okay last night, but did have a couple muscle spasms that woke her from sleep. She does report that the pain medicine (acetaminophen and tramadol) are working to help control her pain. ROS: Patient endorses left hip pain with movements Patient denies fever, chills, night sweats, dizziness/lightheadedness with movements, headache, chest pain, chest palpitations, SOB, cough, abdominal pain, N/V/D, changes in urinary bowel habits, or numbness or tingling going down the left leg. Addendum at 1400: Plan for discharge was discussed with both patient and patient's daughter (Evelina) at bedside. Will plan for discharge to [facility] once patient is medically stable. Family informed that patient's vitals have been stable today, and it does appear her hemoglobin has begun to stabilize. We also discussed the right upper lobe opacity/mass noted on her CXR on arrival. Patient and family expressed desire to have chest CT done prior to discharge to better characterize the mass. Review of Systems Review of Systems: See HPI above Physical Exam Physical Exam: General: no acute distress; family bedside; pleasant affect; non-toxic appearing; frail appearing; cooperative; SpO2 98% on RA HEENT: normocephalic, atraumatic; no scleral icterus; PERRLA; vision and hearing intact Neck: supple; no lymphadenopathy; trachea midline Skin: warm, dry without signs of tenting; no cyanosis; no rashes, bruising, lesions, or erythema noted CV: chest wall NTP; RRR; S1/S2 normal; no murmurs/rubs/gallops; pulses intact and symmetric at radial, DP, and PT Lungs: no acute respiratory distress; symmetrical chest wall expansion; clear breath sounds across all lung fierro w/o adventitious sounds; no wheezing ABD: Soft, NTP; BS present; no rebound/guarding; no distention Left hip: Surgical dressing in place with swelling; no signs of erythema, drainage, or acute infection MSK: no tics or fasciculations; no edema noted in the LEs b/l, nonerythematous (SCDs in place); feet neurovascular intact assessed at the DP/PT pulses bilateral; patient demonstrates the ability to wiggle toes/plantar flex/dorsiflex and lift knees from a seated position against resistance (albeit with some reproduction of pain) Neuro: A&Ox3; normal mood and affect; fluent speech; no focal deficits; patient reports sensation is intact and symmetric in the lower extremities bilaterally Results & Data Results & Data Vital Signs (Past 12 Hours) Vital Signs Temp Pulse Pulse Resp BP Pulse Ox O2 Del Method 01/28/25 11:49 36.4 C 89 17 125/69 99 Room Air 01/28/25 07:16 93 H 01/28/25 05:02 36.9 C 87 20 154/64 H 96 Room Air 01/28/25 02:44 36.3 C L 56 L 18 110/68 93 Room Air PG Care Time/CCT Total # of Minutes Spent Total Time Spent with Patient: Total time spent is greater than 50% in coordination of care (as documented) at patient's floor/unit and/or counseling patient: Coding [place] [address] SUB INP/OBS CARE 3/50MIN Patient Type Established Medical Decision Making High Complexity Diagnoses Subtrochanteric fracture of left femur S72.22XA Acute blood loss anemia D62 Lung mass R91.8 Hyponatremia E87.1"
--- NOTE | 2025-01-28 14:08 | CT Scan Report ---
CT chest diagnostic wo con CT DOSE: 265.03 mGy.cm CLINICAL HISTORY: 4.1 cm RUL mass. TECHNIQUE: Multiaxial CT images of the chest were performed without contrast. A dose lowering techni que was utilized adhering to the principles of ALARA. COMPARISON STUDY: 09/18/2020 CT and chest x-ray of 01/26/2025 FINDINGS: There is motion artifact due to difficulty breath holding. There is a 3 cm AP by 3.6 cm tra nsverse by 4 cm craniocaudad mass anterior right upper lobe in contact with the anterior pleura. No o ther significant pulmonary nodule seen. No pulmonary consolidation or pleural effusion. No pneumothor ax. There is a stable mildly enlarged 1.8 cm subcarinal lymph node. No other enlarged adenopathy seen . There is a trace pericardial effusion. There are diffuse coronary artery and aortic calcifications. There are mild diffuse degenerative changes of thoracic spine. There is moderate chronic appearing h eight loss at the L1 vertebral body. No acute osseous findings seen. Adrenal glands are unremarkable. IMPRESSION: 4 cm right upper lobe lung mass is new compared with the 2020 exam, suspicious for malign noah. ACT 112: Positive. There are findings on this exam that require communication between the performing entity and the patient following Patient Test Result Information Act ([place] Act 112) guidelines. Electronically signed by: Roger Hawkins M.D. 01/28/2025 2:06 PM
[2025-01-28] MEDS: ASPIRIN 81 MG ECTAB PO SCH (20:41)
[2025-01-28] MEDS: CYCLOBENZAPRINE HCL 5 MG TAB PO ONE (20:41)
[2025-01-28] MEDS: POLYETHYLENE (MIRALAX) 17 GM PACK PO SCH (23:15)
[2025-01-29] MEDS: CYCLOBENZAPRINE HCL 5 MG TAB PO PRN (05:48)
[2025-01-29 07:27] LABS: Hematocrit (blood only) 25.0 % (37.0-47.0); Hemoglobin 8.2 g/dl (12.0-16.0); Immature Granulocytes # (auto) 0.05 K/uL (0.01-0.20); Immature Granulocytes % (auto) 0.6 %; Mean Corpuscular Hemoglobin 29.4 pg (25.0-34.0); Mean Corpuscular Volume 89.6 fL (80.0-100.0); Platelet Count 279 K/uL (130-400); RDW Standard Deviation 46.9 fL (36.4-46.3); Red Blood Count 2.79 M/uL (4.20-5.40); White Blood Count 8.99 K/ul (4.8-10.8)
[2025-01-29 07:38] VITALS: BP 136/66; RESP 18; TEMP 98.1; O2SAT 95
[2025-01-29 07:45] LABS: Anion Gap 4.0 (3-11); Blood Urea Nitrogen 18.0 mg/dl (6-23); Calcium 7.9 mg/dl (8.6-10.3); Carbon Dioxide 28.0 mmol/L (21-32); Chloride 98.0 mmol/L (98-107); Creatinine Clr Calc Pharmacy 33.3 ml/min; Glucose 101.0 mg/dl (70-99(Fasting)); Potassium 4.0 mmol/L (3.5-5.1); Sodium 130.0 mmol/L (136-145)
--- NOTE | 2025-01-29 09:49 | Orthopedic Progress Note ---
Date of Service January 29, 2025 Assessment & Plan (1) Closed left femoral fracture: * Continue Current Treatment * Disposition: TBD * Daily treatment: Physical Therapy/ Occupational Therapy per protocol * Weight bearing status: WBAT * Continue to monitor for ABLA * Pain control * Dresing change PRN * DVT prophylaxis per primary team, recommend ASA 81mg BID x6 weeks postop * Office/hospital f/u 2 weeks for progress check and staple/suture removal * Remainder care per primary team * Stable for discharge from ortho procedure standpoint, further planning per primary team Subjective Active Problems: S/p L TFN POD 3 84 y/o female s/p left TFN. Doing well overall, pain managed and improved function. Denies fever/chills, chest pain/SOB, nausea/vomiting. Otherwise no complaints. Review of Systems All systems reviewed & are unremarkable except as noted in HPI & below. Physical Exam * General: Alert and oriented, no acute distress * Constitutional: well-developed, well-nourished. * Respiratory: Normal respiratory effort, no distress * Gastrointestinal: No tenderness to palpation, no rigidity or guarding. * Skin: No rash or lesion. * Neurologic: Grossly normal * Musculoskeletal: Left thigh surgical dressing CDI, not removed for exam. Otherwise no obvious deformity or overlying skin changes. Diffuse TTP proximal thigh and hip region. Otherwise no specific tenderness of distal thigh, lower leg, foot/ankle. Pain with log roll, ROM hip. AROM foot/ankle intact. Sensation intact plantar/dorsal foot. Brisk capillary refill. Results & Data Results & Data Laboratory Results . Diagnostic Findings . PG Care Time/CCT Total # of Minutes Spent Total Time Spent with Patient: Total time spent is greater than 50% in coordination of care (as documented) at patient's floor/unit and/or counseling patient: Coding Level of Care Code 64692 Post Operative Follow-Up Diagnoses Closed left femoral fracture S72.342A Encounter type: initial encounter Femur location: shaft Fracture alignment: displaced Fracture morphology: spiral (1) Closed left femoral fracture Encounter type: initial encounter Femur location: shaft Fracture alignment: displaced Fracture morphology: spiral Qualified Code(s): S72.342A - Displaced spiral fracture of shaft of left femur, initial encounter for closed fracture
--- NOTE | 2025-01-29 09:56 | Discharge Summary ---
Discharge Summary Date of Service January 29, 2025 Principal Dx & Hospital Course #1 = Principal Diagnosis (1) Subtrochanteric fracture of left femur: (2) Acute blood loss anemia: (3) Lung mass: (4) Hyponatremia: Plan 84yo female presented after ground level/mechanical fall while working in her garage with loose fitting shoes. Denies LOC/syncope or head trauma. Not on blood thinners. Not confused. Landed on her left thigh/hip and resulted in immediate pain/inability to bear weight. Left femur fracture on arrival; repaired via ORIF on 01/26. Day of discharge 01/29: Patient reports she is feeling much better today when compared to yesterday. She slept all night, and did not have any muscle spasms waking her from sleep. She believes that the Flexeril has been helping. She is still having left thigh/hip pain with movements; for instance, getting from the bed to her chair this morning was "tough" but she handled it better today than she did yesterday. She also reports that she had a bowel movement this morning. She is eating and sleeping well, and feels ready to go to [facility] today. ROS: Patient endorses left thigh pain with movements. Patient denies fever, chills, night sweats, dizziness/lightheadedness with transferring, headache, chest pain, chest palpitations, SOB, cough, abdominal pain, N/V/D, changes in urinary bowel habits, blood in the urine or stool, melena, or numbness or tingling going down the left leg. 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 Noted arterial calcifications (however pulses present, cap refill WNL) Admit medical w/ telemetry Orthopedics consult appreciate ORIF with Dr. Muro on 01/26 Recommending aspirin 81 mg BID x 6 weeks postop for DVT PPx TSH, UA, and vitamin D level WNL Multimodal pain regimen: IV pain regimen discontinued on 01/27 Scheduled acetaminophen 1000 mg p.o. q8h Given hyponatremia, tramadol has been discontinued on 01/29 out of concern for SIADH Flexeril 5 mg p.o. TID PRN for muscle spasms PT/OT evaluations appreciated; WBAT Recommending acute rehab Case management consult appreciated and plan will be to transfer patient to [facility] upon discharge once medically stable; off accepted on 01/28 #Acute blood loss anemia Hgb 13.3 on arrival Following surgery, Hgb trend 9.9 -> 8.7 -> 9.2 -> 8.2 Repeat CBC in 2 to 3 days to assess for hemoglobin stability Clinically, no active bleeding on physical exam appreciated Continue aspirin 81 mg p.o. twice daily for DVT PPx #Hyponatremia-sodium has been low since admission at 131. Currently 130 at time of discharge. No urine sodium or urine osmolality study done. Is euvolemic. Could be SIADH related to pain or perhaps from pulmonary malignancy? Tramadol has been discontinued Repeat BMP in 2 to 3 days to assess for sodium stability Fluid restriction at 1500 mL daily for now until repeat BMP is drawn #Right upper lobe pulmonary mass Per daughter, h/o heavy tobacco cigarette smoking; quit 25y ago CXR revealed a 4.1 cm masslike RUL opacity; asymptomatic; no SOB or respiratory distress Did discuss this with patient/family at bedside, and they wish to pursue additional imaging at this time Chest CT on 01/28 reconfirmed 4 cm right upper lobe lung mass that is new when compared to 2020 study; suspicious for malignancy Discussed this with patient at bedside + daughter over the phone Will defer pulmonology consult for biopsy at this time, as patient's primary focus wants to be on recovery from her femur fx-plan to arrange follow-up with pulmonology as an outpatient #Chronic diastolic (congestive) heart failure Daily monitoring of lower extremities Caution fluid overload; strict I&O monitoring #Raynauds- plan to continue amlodipine #HTN-BPs are controlled to mildly elevated - Continue amlodipine, losartan #HLD- can continue statin DVT proph: SCDs; aspirin 81 mg BID Disposition: dc to [facility] Spoke on the phone with patient's daughter (Freida) on 01/28 provided update regarding labs/imaging. While Freida is not the medical power of nutrition partner, she is a nurse and her parents usually go to for advice on medical decision making. Over the phone, we discussed the fact that the patient was a former heavy smoker up until 25 years ago. She does have a history of breast cancer years ago, for which she required a lumpectomy. Daughter was informed that this 4.1 cm mass in the right upper lobe was new compared to prior study in 2020. Daughter was also informed that her mother wanted to discuss the case with her before making any decisions regarding a bronchoscopy or needle biopsy. Given the patient's advanced age, it is daughter's recommendation to not have this worked up further at this time. She would like to hold off on any sort of biopsy while patient is recovering from her femur fracture. Spoke with patient at bedside and she is in agreement with this plan. Notes For Next Care Provider Patient with a mechanical fall sustaining a left femur fracture. Vital signs stable at time of discharge, however patient's hemoglobin has been low following surgery (currently 8.2 at discharge). Clinically, no signs of active bleeding on physical exam or hematoma formation around the left hip fracture. Recommend CBC in 2-3 days following transfer to [facility] to ensure stability. Patient has also been hyponatremic in the hospital; ? SIADH as a result of pulmonary malignancy; tramadol has been discontinued; recommend BMP in 2-3 days following transfer. 1500 mL fluid restriction for now. Discussions with family took place in the hospital regarding workup for lung mass. They would like to defer biopsy for now while patient is recovering from her left femur fracture. Recommend pulmonary follow-up outpatient. For PCP: Would also consider Prolia injections moving forward as an outpatient Admission HPI Per Admitting Provider 84yo female with PMHx significant for Raynauds, pulm HTN, HLD, osteoporosis, sciatica, scleroderma presented after a fall in her garage. She reports no pre- syncope and notes she believes her feet were not completely in the back of her shoes and she fell forward onto her left hip and sustained significant discomfort. She notes she was able to roll over onto her right side but has not been able to bear weight on this. Was provided 100mcg fentanyl in route by EMS and 0.5mg dilaudid in ER. Family at bedside reporting patient appearing much more comfortable compared to when she was sent in. Patient denies any CP, SOB, nausea or vomiting at present time. Denies any urinary symptoms but does report needs to urinate at this time and will have nursing place viera given xray with significant left femur fracture with angulation/displacement. Was provided mouth swab per request and dehydration on exam. Patient does report baseline sciatica in her left hip at baseline along with osteoporosis which she takes a vitamin D pill at baseline for but has never been on injections. Not on any blood thinners at baseline, no hx DVT or PE. Last ate ~9am this morning, remains NPO CXR does note mass like structure to R upper lobe, hx breast conserving surgery for breast ca on the left in the past and recs for CT chest for further eval. Not able to take morphine or Demerol per allergies as well as allergy to PCN/codeine. Tolerating the Dilaudid. Takes amlodipine for Raynauds, took this morning. Interestingly she does report she has had some swelling in her left leg this past week but no calf tenderness and pulses present at this time. Sensation intact and able to wiggle toes, ROM not attempted w/ current fracture. Discussed w/ orthopedics and plan for potential surgery this evening if cleared by anesthesia. Full code. Questions/concerns addressed at this time. Admission Exam Per Admitting Provider General: 84yo female resting in bed in emergency department, son/ at bedside, mildly uncomfortable due to spasm but NAD HEENT: head atraumatic, normocephalic, mm DRY, trachea midline, hard of hearing Resp: slightly diminished in the bases but no wheezing/rales/crackles, 100% on RA CV: regular, tachycardic to 100-110s, no significant m/r/g, no pitting edema but LLE>RLE however calves nontender, pulses present, cap refill wnl GI: +BS, soft/NT ; no viera -- RN to place MSK/Neuro: LLE flexed and externally rotated, toes mobile and NVI/sensation intact to light touch, compartments soft, edema to L thigh, pulses present, cap refill wnl able to follow commands, not confused Psych: alert to person/place/time, cooperative Discharge Exam General: no acute distress; pleasant affect; daughter (Evelina) at bedside; non- toxic appearing; frail appearing; cooperative; SpO2 95% on RA HEENT: normocephalic, atraumatic; no scleral icterus; PERRLA; vision and hearing intact Neck: supple; trachea midline Skin: warm, dry without signs of tenting; no cyanosis; no rashes, bruising, lesions, or erythema noted CV: chest wall NTP; RRR; S1/S2 normal; no murmurs/rubs/gallops; pulses intact and symmetric at radial, DP, and PT Lungs: no acute respiratory distress; symmetrical chest wall expansion; clear breath sounds across all lung fierro w/o adventitious sounds; no wheezing ABD: Soft, NTP; BS present; no rebound/guarding; no distention Left hip: New surgical dressing in place on 01/29 with minimal swelling; no signs of erythema, bruising, drainage, or signs of acute infection MSK: no tics or fasciculations; no edema noted in the LEs b/l, nonerythematous (SCDs in place); feet neurovascular intact assessed at the DP/PT pulses bilateral; patient demonstrates the ability to wiggle toes/plantar flex/dorsiflex and lift knees from a seated position against resistance (albeit with some reproduction of pain in the left hip) Neuro: A&Ox3; normal mood and affect; fluent speech; no focal deficits appreciated; patient reports sensation is intact and symmetric in the lower extremities bilaterally Discharge Plan Discharge Items Patient Disposition: Transfer Half-Way Fac Reason For Visit: LEFT FEMUR FRACTURE, FALL Discharge Diagnosis: Left femur fracture, fall Condition on Discharge: Fair Activity: As commented below Activity Comment: Weightbearing as tolerated Non-emergency contact: Primary Care Provider Call non-emergency contact if: you have any medication questions, your symptoms worsen, your pain is not controlled, your pain is worsening, your pain is unusual for you and you have a fever Follow-up/Referrals: Luis Felipe Rogers DO [Primary Care Provider] - Diet: Regular Addtl Attending Provider Instructions: You are hospitalized at [facility] from 01/26 - 01/29 after sustaining a left femur fracture due to a mechanical fall. On the evening of 01/26 you underwent a procedure with Dr. Muro to repair the left femur called an ORIF. Following this procedure, your vital signs remained stable. Your red blood cell count ("hemoglobin level") have been low postoperatively; this is to be expected in the setting of surgery, however we would like to continue to m onitor these levels closely over the next week. At time of discharge, your hemoglobin level was 8.2 (normal reference range 12-16). Please have a repeat blood draw called a CBC in the next 2 to 3 days to assess for hemoglobin stability. Additionally, you were found to have a low sodium ("salt") level throughout your hospital stay. There are many potential causes for this, however for the time being we recommend a 1500 mL fluid restriction. Please plan to have a blood draw called a BMP in the next 2 to 3 days to assess for sodium stability. At time of discharge, you reported that your pain and muscle spasms were improving on current pain regimen. For the time being, we recommend you continue to take acetaminophen 1000 mg every 8 hours scheduled for pain control. Eventually, you can transition to acetaminophen 650 mg p.o. every 6 hours as needed. We will also plan to discharge you on a new prescription for Flexeril 5 mg by mouth which can be taken 3 times a day as needed for muscle spasms. Additionally, there was an incidental finding on your chest x-ray on arrival showing a 4.1 cm mass in the right upper lobe of your lungs. A scan called a chest CT was performed in the hospital, which confirmed that this mass was new from prior studies conducted in 2020. This mass is suspicious for malignancy. We had many discussions in the hospital regarding workup for this mass, and through shared decision making, we elected to hold off on any sort of biopsy while you are recovering from your femur fracture. We recommend that you follow-up with a polymer specialist outpatient in the next 1 to 2 weeks (or soon as possible) to discuss options moving forward. Please plan to follow-up with your PCP in the next 1 to 2 weeks for a transitional care appointment. If you develop any new or worsening symptoms, such as fever/chills, numbness or tingling going down the left leg, chest pain, or trouble breathing, please return to the emergency department immediately. It was a pleasure taking care of you. Please reach out any questions or concerns. Sincerely, The Hospital Medicine team at [facility] Addtl Undertaker Assistant Provider Instructions: General Orthopedic Discharge Instructions Activity: Diet: You may resume previous diet. Medications: 1. Narcotic You will likely be sent home from the hospital with a prescription for the narcotic pain medication. Take it as needed. Side effects most commonly include nausea and constipation 2. Resume previous home medications unless otherwise instructed Dressing Care: If there is a soft dressing in place then leave the dressing intact for 5 days. On the 5th you may remove the dressing and leave the stitches open to air or cover them with band-aids. Keep the incision clean and dry If there is a hard splint then leave it in place until your follow-up visit in 2 weeks Showering: If you have a soft dressing you may shower right after the surgery but do not get the dressing wet. After the dressing is removed on the 5th day then you can get the stitches wet in the shower, but do not soak or scrub them. Let the soapy shower water run over the stitches and pat them dry. If you have a hard splint, cover it in a plastic bag and keep it dry. Do not remove it until the follow up appointment. Things To Watch For: 1. Drainage from the incision site that occurs more than one week after your surgery. 2. Increased redness at the incision site. 3. Fever above 102 degrees Fahrenheit. 4. Unusual chest pain or shortness of breath. 5. Call [facility] at with any of the above problems. Follow-Up Visit: Follow-up with Dr. Muro team 2 weeks after your day of surgery. If you have any questions call Pending Studies at Discharge: No Stand-Alone Forms: My [facility] Skilled Items Patient informed of condition?: Yes DNR: No Discharge Level of Care: Skilled Communicable Disease: No Discharge Prognosis: Stable Lines: None Urinary Catheter: No Medications and DC Order Prescriptions: New acetaminophen [Tylenol Extra Strength] 500 mg Tablet 1,000 mg PO Q8H Qty: 18 0RF Rx Instructions: Take 2 tablets by mouth (1000 mg) every 8 hours while awake for pain control x 3 days cyclobenzaprine 5 mg Tablet 5 mg PO TID PRN (Reason: muscle spasm) Qty: 30 0RF Rx Instructions: Take 1 tablet by mouth up to 3 times daily as needed for muscle spasms Continued atorvastatin 20 mg tablet 20 mg PO QAM acetaminophen 500 mg Tablet 500 mg PO Q6H PRN (Reason: Pain) losartan 25 mg tablet 25 mg PO QAM amlodipine 5 mg tablet 5 mg PO QAM Discharge Orders: Discharge Order (Routine); Ordered 01/29/25 Ordered By: Kristian Mckeon/Other Patient Handouts: Femur Fx Internal Fix Dc Admission Data Admit Date/Time: 01/26/25 15:02 Attending Provider: Leigh Ann Barfield Admit Provider: Loni Albarado Primary Care Provider: Luis Felipe Rogers Other Providers: Loni Albarado; Lloyd Muro; Link Wilson Other Interventions: Discharge Summary Assessment (RN) Last Done: 01/29/25 10:16 Hospital Stay Data Consultations 01/26/25 13:43 ED Decision to Admit Stat 01/26/25 14:20 Consult Orthopedic Surgery Routine Procedures Performed Operation Date: 01/26/25 17:00 Actual Procedures p Left proximal femur fracture open reduction and internal fixation(Left) - Lloyd Muro MD Diagnostic Imagining Performed 01/26/25 FL hip LT 2-3V Routine 01/28/25 12:57 CT chest diagnostic wo con Urgent Pending Results Patient Have Any Pending Studies at Discharge: No Discharge Instructions Given to Patient (Per Discharging Provider) You are hospitalized at [facility] from 01/26 - 01/29 after sustaining a left femur fracture due to a mechanical fall. On the evening of 01/26 you underwent a procedure with Dr. Muro to repair the left femur called an ORIF. Following this procedure, your vital signs remained stable. Your red blood cell count ("hemoglobin level") have been low postoperatively; this is to be expected in the setting of surgery, however we would like to continue to monitor these levels closely over the next week. At time of discharge, your hemoglobin level was 8.2 (normal reference range 12-16). Please have a repeat blood draw called a CBC in the next 2 to 3 days to assess for hemoglobin stability. Additionally, you were found to have a low sodium ("salt") level throughout your hospital stay. There are many potential causes for this, however for the time being we recommend a 1500 mL fluid restriction. Please plan to have a blood draw called a BMP in the next 2 to 3 days to assess for sodium stability. At time of discharge, you reported that your pain and muscle spasms were improving on current pain regimen. For the time being, we recommend you continue to take acetaminophen 1000 mg every 8 hours scheduled for pain control. Eventually, you can transition to acetaminophen 650 mg p.o. every 6 hours as needed. We will also plan to discharge you on a new prescription for Flexeril 5 mg by mouth which can be taken 3 times a day as needed for muscle spasms. Additionally, there was an incidental finding on your chest x-ray on arrival showing a 4.1 cm mass in the right upper lobe of your lungs. A scan called a chest CT was performed in the hospital, which confirmed that this mass was new from prior studies conducted in 2020. This mass is suspicious for malignancy. We had many discussions in the hospital regarding workup for this mass, and through shared decision making, we elected to hold off on any sort of biopsy while you are recovering from your femur fracture. We recommend that you follow-up with a polymer specialist outpatient in the next 1 to 2 weeks (or soon as possible) to discuss options moving forward. Please plan to follow-up with your PCP in the next 1 to 2 weeks for a transitional care appointment. If you develop any new or worsening symptoms, such as fever/chills, numbness or tingling going down the left leg, chest pain, or trouble breathing, please return to the emergency department immediately. It was a pleasure taking care of you. Please reach out any questions or concerns. Sincerely, The Hospital Medicine team at [facility] Supervising Physician Co-Signing Physician Notes BRIA Supervision Note: I did not personally see or examine the patient today, but I verified all collazo points of BRIA Loya's assessment and plan with the following exceptions/additions: None Total Time Total Time Spent Total Time Spent (In Minutes): 25 Coding [place] [address] IN/OBS DISCH 30 MIN/LESS Patient Type Established Medical Decision Making Moderate Complexity Diagnoses Subtrochanteric fracture of left femur S72.22XA Acute blood loss anemia D62 Lung mass R91.8 Hyponatremia E87.1
[2025-01-29 10:16] VITALS: PULSE 92
== END 2025-01-29 11:32 | DRG 481 ==
LOC: SUATTDRO → ED 12:31 → 2W 15:02 → SUATTDRO 15:02 → 2W 17:54